=== PATIENT | female | born 1955 | race Caucasian/White ===

== ENCOUNTER → 2020-09-07 08:22 | Outpatient (BNVA) | payer MEDICARE, MEDICAID, SELFPAY | PROVIDERS: PCP Internal Medicine; Referring Provider Internal Medicine; Visit Provider Internal Medicine | DX: R94.31 Abnormal electrocardiogram [ECG] [EKG] (principal); J96.10 Chronic respiratory failure, unspecified whether with hypoxia or hypercapnia; E66.2 Morbid (severe) obesity with alveolar hypoventilation; Z86.74 Personal history of sudden cardiac arrest | CPT/HCPCS: 93005; 99202 ==

== ENCOUNTER → 2020-09-11 09:32 | Outpatient (REF) | payer MEDICARE, MEDICAID, SELFPAY ==
--- NOTE | 2020-09-11 | NM_ITS ---
Lexiscan Myocardial perfusion study Indication: Atypical chest pain, abnormal EKG, assess for coronary disease and ischemia Technique: The patient was brought in for a Lexiscan perfusion study on 09/11/2020 and was injected 0.4 mg of Lexiscan intravenously. Within a minute of this injection 35 mCi of sestamibi was given intravenously. Images were obtained using the SPECT gamma camera interlaced with the gating device. Images were obtained in supine position. Resting perfusion study was performed on 09/12/2020. Patient was administered 35 mCi of sestamibi intravenously at rest. Images were then obtained in supine position. Total DLP 100mGy-cm. Images were processed with the software and compared side to side in short axis, horizontal long axis and vertical long axis views. Findings: Raw acquisition was reviewed. The stress perfusion study showed no significant perfusion abnormality. Both uncorrected as well as CT attenuation corrected images were reviewed. In the gated portion, LVEF appears visually normal. Calculated LVEF of 42% likely erroneous. LV cavity is normal in size. The gated study shows normal wall thickening and contraction of segments. Resting study shows no significant perfusion abnormality. Gating at rest reveals normal wall motion with ejection fraction at 50% (visually higher). The findings are consistent with no definite reversible or fixed perfusion defects. NM/NM demetrio perf SPECT rest & str Impression: 1. Myocardial perfusion imaging study shows normal myocardial perfusion. No evidence of any ischemia or infarction. 2. Gated LVEF is visually normal. 3. Transient ischemic dilatation not present. EKG component of the test reported separately.
--- NOTE | 2020-09-11 09:38 | CA_ITS ---
Acquisition Time: 2020-09-11 09:50:26 Total Exercise Time: 00:01:29 Test Indications: Abnormal ECG Medications: Protocol: RAFITA Max HR: 131 BPM 83% of Pred: 156 BPM Max BP: 150/080 mmHG Max Work Load: 2.3 METS Nuclear exercise stress test switched to Pharmacological stress test as pt unable to walk on the treadmill for longer then 1 min 29 sec. Pt did well after injection with Lexiscan, Sx of nausea reversed with Aminophyline 75 mg IV. Denies any anginal sx. EKG without any arrhythmias, non-diagnostic for ischemia. Nuclear images to follow. Normotensiver esponse to test. Test reviewed with Dr. Caruso Referred By: Heladio Caruso Overread By: Marii Hightower
== END ==
LOC: HO.CARD 09:32
PROVIDERS: PCP Internal Medicine; Visit Provider Internal Medicine
DX: R94.31 Abnormal electrocardiogram [ECG] [EKG] (principal)
CPT/HCPCS: 78452; 93017; A9500; J0280; J2785

== ENCOUNTER → 2020-09-20 12:54 | Outpatient (BNVA) | payer MEDICARE, MEDICAID, SELFPAY | PROVIDERS: PCP Internal Medicine; Referring Provider Internal Medicine; Visit Provider Internal Medicine | DX: R94.31 Abnormal electrocardiogram [ECG] [EKG] (principal); J96.10 Chronic respiratory failure, unspecified whether with hypoxia or hypercapnia; Z86.74 Personal history of sudden cardiac arrest; E66.2 Morbid (severe) obesity with alveolar hypoventilation | CPT/HCPCS: Q3014 ==

== ENCOUNTER → 2021-01-24 12:24 | Outpatient (BNVA) | payer MEDICARE, MEDICAID, SELFPAY | PROVIDERS: PCP Internal Medicine; Visit Provider Internal Medicine | DX: I27.81 Cor pulmonale (chronic) (principal); J96.10 Chronic respiratory failure, unspecified whether with hypoxia or hypercapnia; E66.2 Morbid (severe) obesity with alveolar hypoventilation | CPT/HCPCS: 99212 ==

== ENCOUNTER 2021-09-14 10:50 | Outpatient (REF) | payer MEDICARE, MEDICAID, SELFPAY | END 2021-09-14 10:51 | disposition home or self-care (01) | LOC: HO.LAB 10:50 | PROVIDERS: PCP Internal Medicine; Visit Provider Internal Medicine | DX: Z20.822 Contact with and (suspected) exposure to COVID-19 (principal) | CPT/HCPCS: C9803; U0003; U0005 ==

== ENCOUNTER 2022-07-18 13:39 | Outpatient (REF) | payer MEDICARE, MEDICAID, SELFPAY ==
--- NOTE | ~2022-07-18 | XR_ITS ---
EXAMINATION: XR CHEST CLINICAL INFORMATION: Cough x3 weeks. COMPARISON: Chest 06/30/2020 TECHNIQUE: 2 views of the chest were obtained. FINDINGS: The lungs are well-expanded and clear. The heart size and pulmonary vascularity is normal. There is moderate spondylosis of dorsal spine. No lytic process seen. XR/XR chest 2V IMPRESSION: Unremarkable chest exam.
== END 2022-07-18 13:40 | disposition home or self-care (01) ==
LOC: HO.HMGCX 13:39
PROVIDERS: PCP Internal Medicine; Visit Provider Internal Medicine
DX: R05.9 Cough, unspecified (principal)
CPT/HCPCS: 71046

== ENCOUNTER 2024-02-27 14:18 | Inpatient (IN) | payer MEDICARE, OTHER, SELFPAY ==
--- NOTE | ~2024-02-27 | XR_ITS ---
EXAMINATION: XR CHEST CLINICAL INFORMATION: Shortness of breath. COMPARISON: Chest radiograph dated 07/18/2022. TECHNIQUE: 2 views of the chest were obtained. FINDINGS: Heart size is normal. There is calcific atherosclerotic disease of the aorta. There is a new right lower lobe consolidation likely reflecting pneumonia. There is no pleural effusion or pneumothorax. No acute osseous abnormality. XR/XR chest 2V IMPRESSION: Right lower lobe consolidation likely reflecting pneumonia.
--- NOTE | ~2024-02-27 | CT_ITS ---
EXAMINATION: CT ANGIOGRAM OF THE CHEST WITH AND WITHOUT CONTRAST (CT PULMONARY ANGIOGRAM FOR PE) CLINICAL INFORMATION: Reason for Exam aute hypoxia , pneumonia/mass/pe COMPARISON: None available. TECHNIQUE: Prior to contrast administration, noncontrast localization images were obtained. Subsequently, multidetector volumetric imaging was performed from the thoracic inlet to below the diaphragms following the administration of 75 mL Omnipaque 350 intravenous contrast. No contrast reaction reported Sagittal, coronal, and MIP oblique sagittal reformatted images were obtained on the CT workstation, uploaded to PACS, and reviewed. This CT examination was performed using dose optimization techniques as appropriate, variously including the following: *Automated exposure control *Adjustment of mA and/or kV according to patient size (this includes techniques or standardized protocols for targeted exams where dose is matched to indication/reason for exam; i.e. extremities or head) *Use of iterative reconstruction technique Total exam dose-length product 587 mGy-cm FINDINGS: QUALITY OF STUDY/CONTRAST BOLUS: Satisfactory. PULMONARY ARTERIES: No pulmonary emboli. THORACIC AORTA: No aneurysm. Scattered calcifications of the wall of the thoracic aorta. LUNG: Dense consolidation at the right lower lobe consistent with pneumonia. PLEURA: No pleural effusion or pneumothorax. MEDIASTINUM: Normal heart size. No pericardial effusion. Subcarinal lymphadenopathy measuring 1.7 cm AP. Subcentimeter lymph nodes in the pretracheal retrovascular space. No evidence of septal bowing or right heart strain. CORONARY ARTERY CALCIFICATION: Small volume of coronary calcification. CHEST WALL/AXILLA: No axillary or internal mammary lymphadenopathy. OSSEOUS STRUCTURES: No acute or suspicious osseous abnormality. Multilevel degenerative spondylosis spine. UPPER ABDOMEN: Unremarkable. No reflux of contrast into the hepatic veins to suggest elevated right heart pressures. CT/CT angio chest PE protocol IMPRESSION: 1. No evidence of pulmonary embolism. 2. Right lower lobe pneumonia. 3. Mediastinal lymphadenopathy. VTE: negative.
[2024-02-27 14:27] VITALS: BP 139/86; BP 143/86; PULSE 80; RESP 20; TEMP 36.6; O2SAT 91; O2SAT 92; BMI 41.4
--- NOTE | 2024-02-27 14:34 | ECG_ITS ---
Test Reason : DYSPNEA Blood Pressure : / mmHG Vent. Rate : 093 BPM Atrial Rate : 093 BPM P-R Int : 128 ms QRS Dur : 072 ms QT Int : 362 ms P-R-T Axes : 033 061 016 degrees QTc Int : 450 ms Sinus rhythm with Premature atrial complexes Otherwise normal ECG When compared with ECG of 23-NOV-2016 13:52, Premature atrial complexes are now Present Referred By: Kylie Eckert Electronically Signed By:VIDHYA GATES MD
[2024-02-27 15:00] LABS: MANUAL DIFF FLAG NO
[2024-02-27 15:03] LABS: Basophils Percent Auto 0.4 % (0-2); Eosinophils Absolute Auto 0.1 X10*3/uL (0.0-0.4); Eosinophils Percent Auto 0.6 % (0-4); Hematocrit 47.4 % (37.0-47.0); Hemoglobin 15.1 g/dl (12.0-16.0); Imm Gran Abs Auto 0.06 X10*3/uL (0.00-0.03); Imm Gran Pct Auto 0.7 % (0.0-0.4); Lymphocytes Absolute Auto 1.4 X10*3/uL (1.2-4.9); Mean Corpuscular HGB Conc 31.9 g/dl (31.0-35.0); Mean Corpuscular Hemoglobin 28.4 pg (27.0-33.0); Mean Corpuscular Volume 89.3 fL (80.0-98.0); Mean Platelet Volume 10.6 fL (9.4-12.3); Monocytes Absolute Auto 0.6 X10*3/uL (0.1-1.2); Monocytes Percent Auto 6.2 % (2-11); Neutrophils Absolute Auto 6.9 x10*3/uL (2.0-8.3); Neutrophils Percent Auto 76.1 % (45-73); Platelet Count 206 X10*3/uL (160-400); Red Blood Count 5.31 X10*6/uL (4.20-5.50)
--- NOTE | 2024-02-27 15:06 | ED_ITS ---
HPI - SOB/Dyspnea General Chief Complaint: Dyspnea Stated Complaint: SOB X FEW WEEKS Source: patient Mode of arrival: EMS History of Present Illness HPI Narrative: 68-year-old female who is an everyday smoker and reports chronic lung disease and has had shortness of breath with increased sputum production for 3 weeks, she notes that her oxygenation has been dipping down into 88% and has used her 's oxygen to help supplement but today just became too much but denies any associated fever, chills, nausea, vomiting. Related Data Home Medications ?Medication ?Instructions ?Recorded ?Confirmed carisoprodol 350 mg tablet 700 mg PO TID 09/20/20 01/24/21 clonazepam 1 mg tablet 1 mg PO DAILY PRN 09/20/20 01/24/21 meclizine 25 mg tablet 25 mg PO TID 09/20/20 01/24/21 ondansetron 4 mg disintegrating mg PO 09/20/20 01/24/21 tablet oxycodone 10 mg tablet 10 mg PO QID PRN 09/20/20 01/24/21 oxycodone 10 mg tablet,crush 10 mg PO BID 09/20/20 01/24/21 resistant,extended release 12 hr sennosides 8.6 mg capsule (senna) 8.6 mg PO DAILY 09/20/20 01/24/21 simvastatin 40 mg tablet 40 mg PO BEDTIME 09/20/20 01/24/21 Allergies Allergy/AdvReac Type Severity Reaction Status Date / Time erythromycin base Allergy Severe ANAPHYLAXIS Verified 09/20/20 12:55 [ERYTHROMYCIN BASE] latex [LATEX] Allergy Severe HIVES Verified 09/20/20 12:55 morphine [MORPHINE] Allergy Intermediate NAUSEA & Verified 09/20/20 12:55 VOMITING codeine [CODEINE] Allergy Unknown HIVES Verified 09/20/20 12:55 Penicillins [PENICILLINS] Allergy Unknown UNKNOWN Verified 09/20/20 12:55 cephalexin [From Keflex] AdvReac Intermediate Nausea/Vomi Verified 02/27/24 14:30 ting Review of Systems 2 Review of Systems: Pertinent positives and negatives as stated in HPI PMFSH Past Medical History Source: nursing notes reviewed Medical History Obesity hypoventilation syndrome Chronic respiratory failure History of cardiac arrest Surgical History History of total hysterectomy History of section Family History Family History Father Renal failure Mother Stroke Social History Social History Cigarettes Per Day: 2 Years Smoked: since age 16 Advance Directives: No Advance Directives Information Provided: Yes Do you have a plan to hurt others: No Plan Physical Exam 2 Vital Signs: Vital Signs: Last Vital Signs Temp 98 F 02/27/24 14:27 Pulse 78 02/27/24 15:49 Resp 18 02/27/24 15:49 BP 139/86 02/27/24 14:27 Pulse Ox 91 L 02/27/24 14:27 O2 Del Method Room Air 02/27/24 14:27 BMI result Body Mass Index 41.4 VITAL SIGNS: Reviewed. GENERAL: Well developed, well nourished, in no acute distress. HEAD: Normocephalic/atraumatic EYES: PERRLA, EOMI EARS: Ext canals without abnormality NOSE: Nares patent bilateral OROPHARYNX: no oral lesions noted, posterior pharynx clear NECK: Supple, no adenopathy LUNGS: Tachypnea present, coarse rhonchi and crackles throughout. SpO2<91> CARDIOVASCULAR: Regular rate and rhythm without noted murmurs ABDOMEN: Soft, non-tender, non-distended with bowel sounds. MUSCULOSKELETAL: No tenderness, deformities, or effusions noted on gross inspection. EXTREMITIES: No cyanosis, clubbing or edema. SKIN: Inspection of the skin reveals no rashes NEUROLOGIC: Alert and oriented x 4. Strength and sensation to light touch were grossly intact x 4. Medications Administered Discontinued Medications Generic Name Dose Route Start Last Admin Trade Name Freq PRN Reason Stop Dose Admin Albuterol Sulfate 2.5 mg/ 0 mg 02/27/24 15:26 02/27/24 15:30 Albuterol/Ipratropium 3 ml INHALE 02/27/24 15:27 1 dose ONCE ONE Administration Medical Decision Making Medical Decision Making MDM Narrative: 68-year-old female with history and clinical presentation, DDX: Bronchitis, viral infection, chronic lung disease Reviewed all investigations and hematologic indices negative for leukocytosis/anemia/thrombocytopenia. VBG does not demonstrate respiratory acidosis and pCO2 is consistent with patient's known chronic lung disease. Chemistry indices negative for OANH/electrolyte or liver enzyme derangements. Viral testing negative for influenza/RSV/COVID-19. 1625: My prelim read of chest x-ray demonstrates infiltrate and patient will receive antibiotics after obtaining lactic acid and blood cultures and suspect patient to be admitted for new hypoxemia with pneumonia despite no evidence of leukocytosis. Signed out to Dr Castillo follow-up of chest x-ray Differential Diagnosis Differential Diagnoses: The differential diagnosis associated with the presentation includes Please see the discussion above Admission/Observation Consideration of admission/observation: Escalation of care including admission/observation considered Please see the discussion above Lab Data MDM Lab Attestation statement: I reviewed the patient's lab results. Please see the discussion above 02/27/24 14:53 02/27/24 14:53 Labs: Lab Results 02/27/24 Range/Units 14:53 WBC 9.0 (4.8-10.8) X10*3/uL RBC 5.31 (4.20-5.50) X10*6/uL Hgb 15.1 (12.0-16.0) g/dl Hct 47.4 H (37.0-47.0) % MCV 89.3 (80.0-98.0) fL MCH 28.4 (27.0-33.0) pg MCHC 31.9 (31.0-35.0) g/dl RDW 14.0 (11.0-16.0) % Plt Count 206 (160-400) X10*3/uL MPV 10.6 (9.4-12.3) fL Immature Gran % (Auto) 0.7 H (0.0-0.4) % Neut % (Auto) 76.1 H (45-73) % Lymph % (Auto) 16.0 L (20-40) % [place] % (Auto) 6.2 (2-11) % Eos % (Auto) 0.6 (0-4) % Baso % (Auto) 0.4 (0-2) % Lymph # (Auto) 1.4 (1.2-4.9) X10*3/uL [place] # (Auto) 0.6 (0.1-1.2) X10*3/uL Eos # (Auto) 0.1 (0.0-0.4) X10*3/uL Baso # (Auto) 0.0 (0.0-0.2) X10*3/uL Abs Immat Gran (auto) 0.06 H (0.00-0.03) X10*3/uL Absolute Neuts (auto) 6.9 (2.0-8.3) x10*3/uL Absolute Nucleated RBC 0.000 (0.0-0.012) X10*3/uL Nucleated RBC % (auto) 0.0 (0.0-0.2) /100WBC VBG pH 7.40 (7.32-7.43) VBG pCO2 50 mmHg VBG pO2 42 mmHg VBG HCO3 31 H (22-26) mmol/L VBG O2 Saturation 68.0 % VBG Base Excess 5.4 mmol/L Sodium 139 (135-145) mmol/L Potassium 4.0 (3.3-5.1) mmol/L Chloride 100 (96-108) mmol/L Carbon Dioxide 29 (22-29) mmol/L Anion Gap 14 (12-20) BUN 11 (9-16) mg/dL Creatinine 0.73 (0.5-1.4) mg/dL Estim Creat Clear Calc 79.6 Estimated GFR > 60 Random Glucose 97 (60-115) mg/dL Calcium 9.4 (8.4-10.2) mg/dL Total Bilirubin 0.7 (0.0-1.0) mg/dL AST 17 (5-31) U/L ALT 16 (0-31) U/L Alkaline Phosphatase 96 (39-117) U/L B-Natriuretic Peptide 54 (<100) pg/mL Total Protein 7.2 (6.5-8.0) g/dL Albumin 3.9 (3.5-5.0) g/dL Influenza Type A (PCR) NEGATIVE (Negative) Influenza Type B (PCR) NEGATIVE (Negative) RSV RNA Qual (PCR) NEGATIVE (Negative) SARS-CoV-2 RNA (RT-PCR) NEGATIVE (Negative) Independent Interpretation I performed an independent interpretation of an: EKG Interpretation: Sinus rhythm with PACs, HR-93, no STEMI, CA/QRS/QTC is within normal limits. Radiology Impression Discussion of test interpretation with radiology: I have reviewed the radiologist's reading. Radiologist Impression: Please see the discussion above External Record Review External record reviewed: Outpatient record, Prior outpatient labs and Prior outpatient radiology Chronic Conditions Patient?s care impacted by: Hypertension Chronic lung disease Critical Care Time Critical Care Time Critical Care Time: Yes Total Critical Care Time: 45 Attestation: I personally attest to this time spent taking care of the patient. Discharge Plan Discharge Clinical Impression: Hypoxia, Pneumonia Patient Disposition: Admitted As Inpatient Print Language: Argentine
[2024-02-27 15:14] LABS: Venous Blood Gas Refer to POC result
[2024-02-27 15:20] LABS: VBG Base Excess 5.4 mmol/L; VBG HCO3 31 mmol/L (22-26); VBG pCO2 50 mmHg; VBG pO2 42 mmHg
[2024-02-27] MEDS: Albuterol Sulfate 2.5 MG, Albuterol/Iprat 2.5/0.5MG 3 ML 3 ML INHALE (15:30)
[2024-02-27 15:39] LABS: B Type Natriuretic Peptide 54 pg/mL (<100)
[2024-02-27 15:49] VITALS: PULSE 78; RESP 18; O2SAT 91
[2024-02-27 15:53] LABS: Influenza A PCR NEGATIVE (Negative); Influenza B PCR NEGATIVE (Negative); Resp Syncy Virus RNA Qual PCR NEGATIVE (Negative); SARS COV2 PCR INHOUSE NEGATIVE (Negative)
[2024-02-27 15:56] LABS: Alanine Aminotransferase 16 U/L (0-31); Albumin Level 3.9 g/dL (3.5-5.0); Alkaline Phosphatase 96 U/L (39-117); Anion Gap 14 (12-20); Aspartate Amino Transferase 17 U/L (5-31); Bilirubin Total 0.7 mg/dL (0.0-1.0); Blood Urea Nitrogen 11 mg/dL (9-16); Calcium 9.4 mg/dL (8.4-10.2); Carbon Dioxide 29 mmol/L (22-29); Chloride 100 mmol/L (96-108); Creatinine Clr Calc Pharmacy 79.6; Estimated Glomerular Filt Rate > 60; Glucose Random 97 mg/dL (60-115); Sodium 139 mmol/L (135-145); Total Protein 7.2 g/dL (6.5-8.0)
[2024-02-27 16:45] VITALS: BP 137/75; PULSE 85; RESP 15; TEMP 36.8; O2SAT 91
[2024-02-27] MEDS: cefEPime HCl 1 GM in 0.9 % Sodium Chloride 50 ML IV (16:51)
--- NOTE | 2024-02-27 16:54 | PC.NURSE ---
blood cultures and lactic drawn. abx started per jan. pt on 2l oxygen, spo2 90-92%
[2024-02-27] MEDS: ondansetron HCL 4 MG/2 ML VIAL IVPUSH (17:53)
[2024-02-27] MEDS: HYDROmorphone HCl 1 MG/ML SYRINGE IVPUSH (17:54)
--- NOTE | 2024-02-27 18:18 | P.HPHOSP_ITS ---
History of Present Illness Date of Service: 02/27/24 Attending physician on admission: Giancarlo Hernandez Chief Complaint: SOB Pt is a 68-year-old female with a PMH significant for?COPD not on home O2, HLD, hx of SBO with resection, abdominal hernias, chronic lower back pain on chronic opioids who presents to the ED for evaluation of SOB, cough, and hypoxia. Pt states symptoms began 3 weeks ago when she developed cough, SOB/TORRES, and difficulty breathing. Cough was initially productive of grayish sputum, but has been mostly clear for the last week. Patient has a pulse ox reader at home and noted she was hypoxic into the 80s. Began using her 's home O2 two weeks ago and has been wearing it constantly since then. Today patient presented to her PCP who checked her O2 saturation and sent her to the ED for further evaluation when she was noted to be hypoxic. Denies fever, chills, nausea, vomiting, abdominal pain. No chest pain/pressure, palpitations. Denies headache. No recent weight loss, or increased fatigue. In the ED pt was afebrile but hypoxic as low as 84% on room air. Labs were grossly unremarkable. No leukocytosis. Stable H&H. No significant electrolyte abnormalities. Renal and hepatic function baseline. BNP WNL. Tested negative for COVID, RSV, flu. CXR found right lower lobe consolidation likely reflecting pneumonia. CTA of chest pending. EKG demonstrated sinus rhythm with PACs and no evidence of significant ST elevations or depressions. Pt was treated with DuoNeb, cefepime, ondansetron, and hydromorphone. Pt will be admitted to the hospital for treatment and further evaluation of acute hypoxic respiratory failure in setting of COPD exacerbation with superimposed pneumonia. Review of Systems 2 Review of Systems: SOB, TORRES Productive cough Difficulty breathing, hypoxia Chronic lower back pain No chest pain/pressure, or palpitations Denies fever, chills, N/V/D, abdominal pain [facility] Medical History (Updated 02/27/24 @ 19:22 by AD Thomas) Chronic lower back pain SBO (small bowel obstruction) Obesity hypoventilation syndrome Chronic respiratory failure History of cardiac arrest Family History Father Renal failure Mother Stroke Surgical History (Updated 02/27/24 @ 19:22 by AD Thomas) Status post colon resection History of total hysterectomy History of section Social History Cigarettes Per Day: 2 Years Smoked: since age 16 Smoked in Last 30 Days: Yes Use of substances other than those prescribed or required for medical reasons: No Advance Directives: No Advance Directives Information Provided: Yes Do you have a plan to hurt others: No Plan Meds Allergies Allergy/AdvReac Type Severity Reaction Status Date / Time erythromycin base Allergy Severe ANAPHYLAXIS Verified 09/20/20 12:55 [ERYTHROMYCIN BASE] latex [LATEX] Allergy Severe HIVES Verified 09/20/20 12:55 morphine [MORPHINE] Allergy Intermediate NAUSEA & Verified 09/20/20 12:55 VOMITING codeine [CODEINE] Allergy Unknown HIVES Verified 09/20/20 12:55 Penicillins [PENICILLINS] Allergy Unknown UNKNOWN Verified 09/20/20 12:55 cephalexin [From Keflex] AdvReac Intermediate Nausea/Vomi Verified 02/27/24 14:30 ting Home Medications ?Medication ?Instructions ?Recorded ?Confirmed ?Last Taken ?Type carisoprodol 350 mg tablet 700 mg PO TID 09/20/20 01/24/21 Unknown History clonazepam 1 mg tablet 1 mg PO DAILY PRN 09/20/20 01/24/21 Unknown History meclizine 25 mg tablet 25 mg PO TID 09/20/20 01/24/21 Unknown History ondansetron 4 mg disintegrating mg PO 09/20/20 01/24/21 Unknown History tablet oxycodone 10 mg tablet 10 mg PO QID PRN 09/20/20 01/24/21 Unknown History oxycodone 10 mg tablet,crush 10 mg PO BID 09/20/20 01/24/21 Unknown History resistant,extended release 12 hr sennosides 8.6 mg capsule (senna) 8.6 mg PO DAILY 09/20/20 01/24/21 Unknown History simvastatin 40 mg tablet 40 mg PO BEDTIME 09/20/20 01/24/21 Unknown History Physical Exam 2 Vital Signs and Narrative: Vital Signs: Last Vital Signs Temp 98.2 F 02/27/24 16:45 Pulse 85 02/27/24 16:45 Resp 15 02/27/24 16:45 BP 137/75 02/27/24 16:45 Pulse Ox 91 L 02/27/24 16:45 O2 Del Method Nasal Cannula 02/27/24 16:45 O2 Flow Rate 2 02/27/24 16:45 BMI result Body Mass Index 41.4 Constitutional: Alert, in no acute distress. Mental Status: Oriented to person, place and time. Eyes: Pupils are equal, round, and reactive to light. Ear, Nose, and Throat: Oropharynx clear, mucous membranes moist. Ears and nose without deformities. Trachea midline. Respiratory: Diffuse inspiratory and expiratory wheezing bilaterally. Cardiovascular: Regularly irregular rhythm. No murmurs, rubs, or gallops. Gastrointestinal: Abdomen soft, non-tender, non-distended. Normal bowel sounds. Neurologic: Cranial nerves II-XII are grossly intact bilaterally. No focal neurological deficits. Moves all extremities spontaneously. Skin: Warm, dry. Musculoskeletal: No cyanosis or clubbing. Extremities: No edema. Psychiatric: Normal mood and affect. Results Labs 02/27/24 14:53 02/27/24 14:53 Labs: Laboratory Results - last 24 hr 02/27/24 14:53 MCV 89.3 MCH 28.4 MCHC 31.9 RDW 14.0 Plt Count 206 MPV 10.6 Immature Gran % (Auto) 0.7 H Neut % (Auto) 76.1 H Lymph % (Auto) 16.0 L [place] % (Auto) 6.2 Eos % (Auto) 0.6 Baso % (Auto) 0.4 Lymph # (Auto) 1.4 [place] # (Auto) 0.6 Eos # (Auto) 0.1 Baso # (Auto) 0.0 Abs Immat Gran (auto) 0.06 H Absolute Neuts (auto) 6.9 Absolute Nucleated RBC 0.000 Nucleated RBC % (auto) 0.0 VBG pH 7.40 VBG pCO2 50 VBG pO2 42 VBG HCO3 31 H VBG O2 Saturation 68.0 VBG Base Excess 5.4 Anion Gap 14 Estim Creat Clear Calc 79.6 Estimated GFR > 60 Random Glucose 97 Calcium 9.4 Total Bilirubin 0.7 AST 17 ALT 16 Alkaline Phosphatase 96 B-Natriuretic Peptide 54 Total Protein 7.2 Albumin 3.9 Influenza Type A (PCR) NEGATIVE Influenza Type B (PCR) NEGATIVE RSV RNA Qual (PCR) NEGATIVE SARS-CoV-2 RNA (RT-PCR) NEGATIVE Imaging Radiologist's Impressions: Impressions Chest X-Ray 02/27/24 16:19 IMPRESSION: Right lower lobe consolidation likely reflecting pneumonia. Assessment and Plan (1) Pneumonia: Status: Acute (2) Hypoxia: Status: Acute Plan Pt is a 68-year-old female with a PMH significant for?COPD not on home O2, HLD, hx of SBO with resection, abdominal hernias, chronic lower back pain on chronic opioids who presents to the ED for evaluation of SOB, cough, and hypoxia. Pt will be admitted to the hospital for treatment and further evaluation of acute hypoxic respiratory failure in setting of COPD exacerbation with superimposed pneumonia. Acute hypoxic respiratory failure in the setting of COPD exacerbation and superimposed pneumonia Patient with SOB, TORRES, productive cough x2 weeks; desatting to 84% on RA, wheezing upon auscultation, and CXR with consolidation Patient does not meet sepsis criteria: No fever, tachycardia, tachypnea, or leukocytosis; lactic acid WNL Patient was started on broad-spectrum antibiotics in the ED Will cover with cefuroxime and doxycycline, started 02/27/2024 Will treat with DuoNebs, Solu-Medrol, guaifenesin CTA of chest pending Titrate supplemental O2 >90, wean as tolerated Monitor respiratory status HLD Continue statin Chronic lower back pain Continue home opioids, carisoprodol Vertigo Continue meclizine Full Code Attending:?Dr. Hernandez DVT Prophylaxis: Lovenox Pt will require a hospitalization of at least two nights for treatment of?acute hypoxic respiratory failure in the setting of COPD exacerbation with underlying pneumonia. Patient will require hospitalization for the administration of IV antibiotics, IV steroids, breathing treatments, and supplemental oxygen. Quality Stroke Does the patient have a stroke diagnosis?: No VTE Prior VTE?: No VTE Risk Level:: Medical - moderate - high VTE Device Contraindication: Treatment Not Indicated VTE Drug Contraindication: N/A - Med Ordered
[2024-02-27 18:53] LABS: Lactic Acid 1.6 mmol/L (0.5-2.0)
[2024-02-27 19:07] VITALS: PULSE 79; RESP 18; O2SAT 91
[2024-02-27] MEDS: Albuterol/Iprat 2.5/0.5MG 3 ML AMPUL.NEB INHALE (19:27)
[2024-02-27] MEDS: Enoxaparin Sodium 40 MG/0.4 ML SYRINGE SUBCUT (19:28)
[2024-02-27] MEDS: methylPREDNISolone Sod Succ 40 MG/ML VIAL IVPUSH (19:28)
[2024-02-27] MEDS: iohexoL 350 MG/ML 100 ML INFUS..BTL IV (19:59)
--- NOTE | 2024-02-27 20:53 | PHA.MEDREC ---
Pharmacy Consult ? Medication Reconciliation Pharmacy has completed the medication reconciliation with the patient. Pt was able to recall medications and doses with a little bit of help. She said she takes clonazepam 1 mg at bedtime and splits 1 tablet prn when she is feeling anxious. Also states that carisoprodol is written for 2 tabs TID but she only takes one tablet at a time as needed.
[2024-02-27] MEDS: clonazePAM 1 MG TABLET PO (22:38)
[2024-02-27] MEDS: oxyCODONE HCl ER 10 MG TAB.ER.12H 20 MG PO (22:38)
[2024-02-27] MEDS: Meclizine HCl 25 MG TABLET 50 MG PO (22:38)
[2024-02-28] VITALS (10 sets, daily range): BP systolic 99–117; BP diastolic 58–80; PULSE 52–100; RESP 12–18; TEMP 36.1–37.1; O2SAT 90–97
[2024-02-28] MEDS: methylPREDNISolone Sod Succ 40 MG/ML VIAL IVPUSH ×2 (07:28→20:45)
[2024-02-28] MEDS: cefTRIAXone sodium 1 GM in 0.9 % Sodium Chloride 50 ML IV (07:28)
[2024-02-28] MEDS: 0.9 % Sodium Chloride Flush 3 ML SYRINGE IVFLUSH ×2 (07:28→15:51)
[2024-02-28] MEDS: Omeprazole 20 MG CAPSULE.DR PO (07:28)
[2024-02-28] MEDS: Doxycycline Hyclate 100 MG in 0.9 % Sodium Chloride 250 ML 166.67 MG IV ×2 (07:51→20:43)
[2024-02-28] MEDS: Albuterol/Iprat 2.5/0.5MG 3 ML AMPUL.NEB INHALE ×4 (07:51→19:03)
--- NOTE | 2024-02-28 08:01 | P.PNIM_ITS ---
Subjective Subjective Date of Service: 02/28/24 Interval History: a bit better today Physical Exam 2 Vital Signs: Vital Signs: Last Vital Signs Temp 98.2 F 02/28/24 06:24 Pulse 69 02/28/24 08:00 Resp 16 02/28/24 08:00 BP 117/80 02/28/24 07:30 Pulse Ox 97 02/28/24 07:30 O2 Del Method Nasal Cannula 02/28/24 07:30 O2 Flow Rate 4 02/28/24 07:30 BMI result Body Mass Index 41.4 General: AO X 3, no acute distress Resp: diminished bilateral, no accessory muscles used CVS: S1,S2,RRR GI: soft, non tender, non distended Neuro: motor grossly intact, alert Psych: appropriate affect, appropriate insight Objective Data Active Medications Acetaminophen (Acetaminophen 325 Mg Tablet) 650 mg PO Q6H PRN PRN Reason: Pain, Mild (Pain Scale 1-3) Albuterol/Ipratropium (Albuterol/Iprat 2.5/0.5mg 3 Ml Ampul.Neb) 3 ml INHALE RQ4H WHILE AWAKE [facility], [facility] Last Admin: 02/28/24 07:51 Dose: 3 ml Documented By: ROSIO Atorvastatin Calcium (Atorvastatin Calcium 20 Mg Tablet) 20 mg PO BEDTIME JULIET Carisoprodol (Carisoprodol 350 Mg Tablet) 350 mg PO TID PRN PRN Reason: Pain, Mild (Pain Scale 1-3) Clonazepam (Clonazepam 0.5 Mg Tablet) 0.5 mg PO DAILY PRN PRN Reason: Anxiety Clonazepam (Clonazepam 1 Mg Tablet) 1 mg PO BEDTIME [facility] Last Admin: 02/27/24 22:38 Dose: 1 mg Documented By: GAVIOTA Docusate Sodium (Docusate Sodium 100 Mg Capsule) 100 mg PO DAILY PRN PRN Reason: Constipation Enoxaparin Sodium (Enoxaparin Sodium 40 Mg/0.4 Ml Syringe) 40 mg SUBCUT Q24H [facility] Last Admin: 02/27/24 19:28 Dose: 40 mg Documented By: GAVIOTA Guaifenesin/Dextromethorphan (Guaifenesin Dm 200/20/10 Ml 10 Ml Syrup) 10 ml PO Q6H PRN PRN Reason: Cough Doxycycline Hyclate 100 mg/ (Sodium Chloride) 250 mls @ 166.67 mls/hr IV Q12H [facility] Last Admin: 02/28/24 07:51 Dose: 166.67 mls/hr Documented By: ROSIO Ceftriaxone Sodium 1 gm/ (Sodium Chloride) 50 mls @ 100 mls/hr IV Q24H [facility] Last Admin: 02/28/24 07:28 Dose: 100 mls/hr Documented By: ROSIO Lisinopril (Lisinopril 10 Mg Tablet) 10 mg PO DAILY [facility]; Protocol Meclizine HCl (Meclizine Hcl 25 Mg Tablet) 50 mg PO TID [facility] Last Admin: 02/27/24 22:38 Dose: 50 mg Documented By: GAVIOTA Melatonin (Melatonin 3 Mg Tablet) 6 mg PO BEDTIME PRN PRN Reason: Insomnia Methylprednisolone Sodium Succinate (Methylprednisolone Sod Succ 40 Mg/Ml Vial) 40 mg IVPUSH Q12H [facility] Last Admin: 02/28/24 07:28 Dose: 40 mg Documented By: ROSIO Omeprazole (Omeprazole 20 Mg Capsule.Dr) 20 mg PO DAILY@0630 [facility] Last Admin: 02/28/24 07:28 Dose: 20 mg Documented By: ROSIO Ondansetron HCl (Ondansetron Hcl 4 Mg/2 Ml Vial) 4 mg IVPUSH Q8H PRN PRN Reason: Nausea and Vomiting Oxycodone HCl (Oxycodone Hcl Immed Release 5 Mg Tablet) 10 mg PO QID [facility] Oxycodone HCl (Oxycodone Hcl Er 10 Mg Tab.Er.12h) 20 mg PO BID [facility] Last Admin: 02/27/24 22:38 Dose: 20 mg Documented By: GAVIOTA Senna (Sennosides 8.6 Mg Tablet) 17.2 mg PO DAILY [facility]1983 Sodium Chloride (0.9 % Sodium Chloride Flush 3 Ml Syringe) 3 ml IVFLUSH QSHIFT [facility] Last Admin: 02/28/24 07:28 Dose: 3 ml Documented By: ROSIO Labs 02/27/24 14:53 02/27/24 14:53 Labs: Laboratory Results - last 24 hr 02/27/24 02/27/24 14:53 16:35 MCV 89.3 MCH 28.4 MCHC 31.9 RDW 14.0 Plt Count 206 MPV 10.6 Immature Gran % (Auto) 0.7 H Neut % (Auto) 76.1 H Lymph % (Auto) 16.0 L [place] % (Auto) 6.2 Eos % (Auto) 0.6 Baso % (Auto) 0.4 Lymph # (Auto) 1.4 [place] # (Auto) 0.6 Eos # (Auto) 0.1 Baso # (Auto) 0.0 Abs Immat Gran (auto) 0.06 H Absolute Neuts (auto) 6.9 Absolute Nucleated RBC 0.000 Nucleated RBC % (auto) 0.0 VBG pH 7.40 VBG pCO2 50 VBG pO2 42 VBG HCO3 31 H VBG O2 Saturation 68.0 VBG Base Excess 5.4 Anion Gap 14 Estim Creat Clear Calc 79.6 Estimated GFR > 60 Random Glucose 97 Lactic Acid 1.6 Calcium 9.4 Total Bilirubin 0.7 AST 17 ALT 16 Alkaline Phosphatase 96 B-Natriuretic Peptide 54 Total Protein 7.2 Albumin 3.9 Influenza Type A (PCR) NEGATIVE Influenza Type B (PCR) NEGATIVE RSV RNA Qual (PCR) NEGATIVE SARS-CoV-2 RNA (RT-PCR) NEGATIVE Assessment and Plan (1) Pneumonia: Status: Acute Plan 68F PMH COPD, hyperlipidemia, history of SBO with small-bowel resection, chronic low back pain with opiate dependence presented with shortness of breath Acute hypoxic respiratory failure due to COPD with acute decompensation and right lower lobe pneumonia Continue Rocephin and doxycycline Solu-Medrol and bronchodilators Wean O2 as tolerated Hyperlipidemia Continue statin Morbid obesity Weight loss recommended Chronic low back pain with opiate dependence Continue oxycodone DVT prophylaxis with Lovenox Full Code Reason for continued hospitalization: Still hypoxic Quality Stroke Does the patient have a stroke diagnosis?: No VTE Prior VTE?: No VTE Risk Level:: Medical - moderate - high VTE Device Contraindication: Treatment Not Indicated VTE Drug Contraindication: N/A - Med Ordered
--- NOTE | 2024-02-28 08:30 | PC.NURSE ---
PT TRANSFERED FROM MAIN ED TO OVERFLOW BED 1 VIA STRETCHER. RN TO RN REPORT RECEIVED.
--- NOTE | 2024-02-28 08:48 | PC.NURSE ---
Addendum entered by Breanna Ferreira 02/28/24 08:54: C/O 9/10 LOWER BACK PAIN. Original Note: PT IS A/O X 3. SPEAKS IN FULL SENTENCES. LUNGS - RUL (CTA) ALL OTTHER LOBES DIMINISHED. PT IS ON 02 AT 2.5L VIA N/C (92-93% FOR 02 SAT). PT C/O LOWER BACK PAIN. NO EDEMA NOTED. PT AWARE OF PLAN OF CARE. WILL CONTINUE TO MONITOR.
[2024-02-28] MEDS: Sennosides 8.6 MG TABLET 17.2 MG PO (08:57)
[2024-02-28] MEDS: oxyCODONE HCl Immed Release 5 MG TABLET 10 MG PO ×4 (08:57→20:47)
[2024-02-28] MEDS: lisinopriL 10 MG TABLET PO (08:57)
[2024-02-28] MEDS: Meclizine HCl 25 MG TABLET 50 MG PO ×3 (08:57→20:47)
[2024-02-28] MEDS: oxyCODONE HCl ER 10 MG TAB.ER.12H 20 MG PO ×2 (09:08→20:47)
--- NOTE | 2024-02-28 11:14 | PC.NURSE ---
PT STATES THAT HER PAIN IS NOW 7/10. WILL CONTINUE TO MONITOR.
--- NOTE | 2024-02-28 15:11 | MHC.CM.PN ---
IMM 02/28/24, EMR REVIEWED, PT ADMITTED W/PNA, CM MET W/PT WHO IS A&O, PT REPORTS SHE LIVES W/, DTR AND GSON, PT REPORTS SHE IS INDEP W/AMBULATION, DOES HAVE GRAB BARS IN BR FOR WHO HAD A STROKE AND HAS FAMILY SUPPORT W/ONE DTR IN [employer]SING [employer] AND ANOTHER FAMILY MEMBER WHO IS A NURSE, PT REPORTS GOAL IS HOME AND SHE DECLINES ANY HOME SERVICES. PCP ON FILE VERIFIED AND HCP IS BAKARI TURCIOS, COPY REQUESTED.
[2024-02-28] MEDS: Enoxaparin Sodium 40 MG/0.4 ML SYRINGE SUBCUT (18:21)
--- NOTE | 2024-02-28 18:58 | PC.NURSE ---
IV access lost at approximately 1845 when attempting to hang IV doxycycline and administer IV solumedrol. Access attempted x2 by this RN with no success. Care transferred to RN assuming care of patient at change of shift.
[2024-02-28] MEDS: Atorvastatin Calcium 20 MG TABLET PO (20:47)
[2024-02-28] MEDS: clonazePAM 1 MG TABLET PO (20:47)
[2024-02-29] VITALS (8 sets, daily range): BP systolic 99–124; BP diastolic 60–79; PULSE 68–95; RESP 16–18; TEMP 36.2–36.7; O2SAT 90–94
[2024-02-29] MEDS: Omeprazole 20 MG CAPSULE.DR PO (06:12)
[2024-02-29] MEDS: cefTRIAXone sodium 1 GM in 0.9 % Sodium Chloride 50 ML IV (06:13)
[2024-02-29] MEDS: methylPREDNISolone Sod Succ 40 MG/ML VIAL IVPUSH ×2 (06:13→18:08)
[2024-02-29] MEDS: Doxycycline Hyclate 100 MG in 0.9 % Sodium Chloride 250 ML 166.67 MG IV (06:13)
[2024-02-29] MEDS: carisoprodoL 350 MG TABLET PO (06:19)
[2024-02-29 06:29] LABS: Hematocrit 44.7 % (37.0-47.0); Hemoglobin 13.7 g/dl (12.0-16.0); Mean Corpuscular HGB Conc 30.6 g/dl (31.0-35.0); Mean Corpuscular Hemoglobin 27.8 pg (27.0-33.0); Mean Corpuscular Volume 90.7 fL (80.0-98.0); Mean Platelet Volume 11.2 fL (9.4-12.3); Platelet Count 257 X10*3/uL (160-400); Red Blood Count 4.93 X10*6/uL (4.20-5.50); Red Cell Distribution Width 14.1 % (11.0-16.0)
[2024-02-29 06:56] LABS: Blood Urea Nitrogen 14 mg/dL (9-16); Calcium 9.2 mg/dL (8.4-10.2); Creatinine Clr Calc Pharmacy 80.8; Estimated Glomerular Filt Rate > 60; Glucose Fasting 129 mg/dL (60-99)
[2024-02-29 07:12] LABS: Anion Gap 13 (12-20); Carbon Dioxide 29 mmol/L (22-29); Chloride 100 mmol/L (96-108); Potassium 5.2 mmol/L (3.3-5.1); Sodium 137 mmol/L (135-145)
[2024-02-29] MEDS: oxyCODONE HCl Immed Release 5 MG TABLET 10 MG PO ×4 (08:21→21:04)
[2024-02-29] MEDS: 0.9 % Sodium Chloride Flush 3 ML SYRINGE IVFLUSH ×2 (08:21→15:41)
[2024-02-29] MEDS: oxyCODONE HCl ER 10 MG TAB.ER.12H 20 MG PO ×2 (08:21→21:02)
[2024-02-29] MEDS: Meclizine HCl 25 MG TABLET 50 MG PO ×3 (08:22→21:02)
[2024-02-29] MEDS: lisinopriL 10 MG TABLET PO (08:22)
[2024-02-29] MEDS: Sennosides 8.6 MG TABLET 17.2 MG PO (08:22)
[2024-02-29] MEDS: Albuterol/Iprat 2.5/0.5MG 3 ML AMPUL.NEB INHALE ×3 (08:27→19:07)
--- NOTE | 2024-02-29 09:25 | HO.PM.IMPN ---
Subjective Subjective Date of Service: 02/29/24 Interval History: feeling better today Physical Exam Vital Signs: Vital Signs: Last Vital Signs Temp 97.4 F 02/29/24 08:00 Pulse 78 02/29/24 08:29 Resp 18 02/29/24 08:29 BP 120/79 02/29/24 08:22 Pulse Ox 92 02/29/24 08:00 O2 Del Method Room Air 02/29/24 08:00 O2 Flow Rate 1 02/28/24 14:43 BMI result Body Mass Index 41.4 General: AO X 3, no acute distress Resp: diminished bilateral with crackles, mild accessory muscles used CVS: S1,S2,RRR GI: soft, non tender, non distended Neuro: motor grossly intact, alert Psych: appropriate affect, appropriate insight Objective Data Active Medications Acetaminophen (Acetaminophen 325 Mg Tablet) 650 mg PO Q6H PRN PRN Reason: Pain, Mild (Pain Scale 1-3) Albuterol/Ipratropium (Albuterol/Iprat 2.5/0.5mg 3 Ml Ampul.Neb) 3 ml INHALE RQ4H WHILE AWAKE [facility] Last Admin: 02/29/24 08:27 Dose: 3 ml Documented By: RUBY Atorvastatin Calcium (Atorvastatin Calcium 20 Mg Tablet) 20 mg PO BEDTIME [facility] Last Admin: 02/28/24 20:47 Dose: 20 mg Documented By: NICOLE Carisoprodol (Carisoprodol 350 Mg Tablet) 350 mg PO TID PRN PRN Reason: Pain, Mild (Pain Scale 1-3) Last Admin: 02/29/24 06:19 Dose: 350 mg Documented By: NICOLE Clonazepam (Clonazepam 0.5 Mg Tablet) 0.5 mg PO DAILY PRN PRN Reason: Anxiety Clonazepam (Clonazepam 1 Mg Tablet) 1 mg PO BEDTIME [facility] Last Admin: 02/28/24 20:47 Dose: 1 mg Documented By: NICOLE Docusate Sodium (Docusate Sodium 100 Mg Capsule) 100 mg PO DAILY PRN PRN Reason: Constipation Doxycycline Monohydrate (Doxycycline Monohydrate 100 Mg Capsule) 100 mg PO Q12H [facility] Enoxaparin Sodium (Enoxaparin Sodium 40 Mg/0.4 Ml Syringe) 40 mg SUBCUT Q24H [facility] Last Admin: 02/28/24 18:21 Dose: 40 mg Documented By: CHUCKY Guaifenesin/Dextromethorphan (Guaifenesin Dm 200/20/10 Ml 10 Ml Syrup) 10 ml PO Q6H PRN PRN Reason: Cough Doxycycline Hyclate 100 mg/ (Sodium Chloride) 250 mls @ 166.67 mls/hr IV Q12H [facility] Stop: 02/29/24 10:00 Last Infusion: 02/29/24 08:21 Dose: Infused Documented By: VIVIAN Ceftriaxone Sodium 1 gm/ (Sodium Chloride) 50 mls @ 100 mls/hr IV Q24H [facility] Last Infusion: 02/29/24 07:01 Dose: Infused Documented By: VIVIAN Lisinopril (Lisinopril 10 Mg Tablet) 10 mg PO DAILY [facility]; Protocol Last Admin: 02/29/24 08:22 Dose: 10 mg Documented By: VIVIAN Meclizine HCl (Meclizine Hcl 25 Mg Tablet) 50 mg PO TID [facility] Last Admin: 02/29/24 08:22 Dose: 50 mg Documented By: VIVIAN Melatonin (Melatonin 3 Mg Tablet) 6 mg PO BEDTIME PRN PRN Reason: Insomnia Methylprednisolone Sodium Succinate (Methylprednisolone Sod Succ 40 Mg/Ml Vial) 40 mg IVPUSH Q12H [facility] Last Admin: 02/29/24 06:13 Dose: 40 mg Documented By: NICOLE Omeprazole (Omeprazole 20 Mg Capsule.Dr) 20 mg PO DAILY@0630 [facility] Last Admin: 02/29/24 06:12 Dose: 20 mg Documented By: NICOLE Ondansetron HCl (Ondansetron Hcl 4 Mg/2 Ml Vial) 4 mg IVPUSH Q8H PRN PRN Reason: Nausea and Vomiting Oxycodone HCl (Oxycodone Hcl Immed Release 5 Mg Tablet) 10 mg PO QID [facility] Last Admin: 02/29/24 08:21 Dose: 10 mg Documented By: VIVIAN Oxycodone HCl (Oxycodone Hcl Er 10 Mg Tab.Er.12h) 20 mg PO BID [facility] Last Admin: 02/29/24 08:21 Dose: 20 mg Documented By: VIVIAN Senna (Sennosides 8.6 Mg Tablet) 17.2 mg PO DAILY [facility] Last Admin: 02/29/24 08:22 Dose: 17.2 mg Documented By: VIVIAN Sodium Chloride (0.9 % Sodium Chloride Flush 3 Ml Syringe) 3 ml IVFLUSH QSHIFT [facility] Last Admin: 02/29/24 08:21 Dose: 3 ml Documented By: VIVIAN Labs 02/29/24 05:52 02/29/24 05:52 Labs: Laboratory Results - last 24 hr 02/29/24 05:52 MCV 90.7 MCH 27.8 MCHC 30.6 L RDW 14.1 Plt Count 257 MPV 11.2 Absolute Nucleated RBC 0.000 Nucleated RBC % (auto) 0.0 Anion Gap 13 Estim Creat Clear Calc 80.8 Estimated GFR > 60 Fasting Glucose 129 H Calcium 9.2 Microbiology Microbiology Results: Microbiology 02/27/24 16:35 Blood Culture - Preliminary Blood - Venous No growth after 24 hours. 02/27/24 16:49 Blood Culture - Preliminary Blood - Venous Prelim: GPC Gram Stain only Assessment and Plan (1) Pneumonia: Status: Acute Plan 68F PMH COPD, hyperlipidemia, history of SBO with small-bowel resection, chronic low back pain with opiate dependence presented with shortness of breath Acute hypoxic respiratory failure due to COPD with acute decompensation and right lower lobe pneumonia Continue Rocephin and doxycycline Solu-Medrol and bronchodilators now on room air 1/2 gpc in blood culture likely contaminant, follow up species Hyperlipidemia Continue statin Morbid obesity Weight loss recommended Chronic low back pain with opiate dependence Continue oxycodone DVT prophylaxis with Lovenox Full Code Reason for continued hospitalization: still with crackles, some accessory muscles, awaiting final cultures Quality Stroke Does the patient have a stroke diagnosis?: No VTE Prior VTE?: No VTE Risk Level:: Medical - moderate - high VTE Device Contraindication: Treatment Not Indicated VTE Drug Contraindication: N/A - Med Ordered
[2024-02-29] MEDS: Enoxaparin Sodium 40 MG/0.4 ML SYRINGE SUBCUT (18:08)
[2024-02-29] MEDS: Doxycycline Monohydrate 100 MG CAPSULE PO (18:08)
[2024-02-29] MEDS: Atorvastatin Calcium 20 MG TABLET PO (21:02)
[2024-02-29] MEDS: clonazePAM 1 MG TABLET PO (21:02)
[2024-03-01 02:46] VITALS: BP 120/67; PULSE 64; RESP 17; TEMP 36.4; O2SAT 93
[2024-03-01] MEDS: carisoprodoL 350 MG TABLET PO (02:54)
[2024-03-01] MEDS: Omeprazole 20 MG CAPSULE.DR PO (06:08)
[2024-03-01] MEDS: Doxycycline Monohydrate 100 MG CAPSULE PO (06:08)
[2024-03-01] MEDS: methylPREDNISolone Sod Succ 40 MG/ML VIAL IVPUSH (06:09)
[2024-03-01] MEDS: cefTRIAXone sodium 1 GM in 0.9 % Sodium Chloride 50 ML IV (06:17)
[2024-03-01 07:07] LABS: Hematocrit 41.4 % (37.0-47.0); Hemoglobin 13.1 g/dl (12.0-16.0); Mean Corpuscular HGB Conc 31.6 g/dl (31.0-35.0); Mean Corpuscular Hemoglobin 28.3 pg (27.0-33.0); Mean Corpuscular Volume 89.4 fL (80.0-98.0); Mean Platelet Volume 11.5 fL (9.4-12.3); Platelet Count 262 X10*3/uL (160-400); Red Blood Count 4.63 X10*6/uL (4.20-5.50); Red Cell Distribution Width 14.5 % (11.0-16.0)
[2024-03-01 07:22] LABS: Anion Gap 12 (12-20); Blood Urea Nitrogen 18 mg/dL (9-16); Calcium 9.1 mg/dL (8.4-10.2); Carbon Dioxide 27 mmol/L (22-29); Chloride 101 mmol/L (96-108); Creatinine Clr Calc Pharmacy 81.9; Estimated Glomerular Filt Rate > 60; Glucose Fasting 102 mg/dL (60-99); Potassium 4.4 mmol/L (3.3-5.1); Sodium 136 mmol/L (135-145)
[2024-03-01 07:37] VITALS: PULSE 66; RESP 17; O2SAT 92
[2024-03-01] MEDS: Albuterol/Iprat 2.5/0.5MG 3 ML AMPUL.NEB INHALE (07:37)
[2024-03-01 07:45] VITALS: BP 171/80; PULSE 65; RESP 18; O2SAT 96
[2024-03-01] MEDS: oxyCODONE HCl ER 10 MG TAB.ER.12H 20 MG PO (08:05)
[2024-03-01] MEDS: Sennosides 8.6 MG TABLET 17.2 MG PO (08:05)
[2024-03-01] MEDS: lisinopriL 10 MG TABLET PO (08:06)
[2024-03-01] MEDS: oxyCODONE HCl Immed Release 5 MG TABLET 10 MG PO (08:06)
[2024-03-01] MEDS: Meclizine HCl 25 MG TABLET 50 MG PO (08:06)
[2024-03-01] MEDS: 0.9 % Sodium Chloride Flush 3 ML SYRINGE IVFLUSH (08:08)
--- NOTE | 2024-03-01 08:52 | P.DS_ITS ---
DS: Providers Provider Date of Service: 03/01/24 Date of admission: 02/27/24 18:54 Primary care physician: Atul Boyle MD DS: Diagnosis Discharge Diagnosis (1) Pneumonia: Status: Acute DS: Summary Hospital Course Hospital Course: from initial hpi: 68-year-old female with a PMH significant for?COPD not on home O2, HLD, hx of SBO with resection, abdominal hernias, chronic lower back pain on chronic opioids who presents to the ED for evaluation of SOB, cough, and hypoxia. Pt states symptoms began 3 weeks ago when she developed cough, SOB/TORRES, and difficulty breathing. Cough was initially productive of grayish sputum, but has been mostly clear for the last week. Patient has a pulse ox reader at home and noted she was hypoxic into the 80s. Began using her 's home O2 two weeks ago and has been wearing it constantly since then. Today patient presented to her PCP who checked her O2 saturation and sent her to the ED for further evaluation when she was noted to be hypoxic. Denies fever, chills, nausea, vomiting, abdominal pain. No chest pain/pressure, palpitations. Denies headache. No recent weight loss, or increased fatigue. In the ED pt was afebrile but hypoxic as low as 84% on room air. Labs were grossly unremarkable. No leukocytosis. Stable H&H. No significant electrolyte abnormalities. Renal and hepatic function baseline. BNP WNL. Tested negative for COVID, RSV, flu. CXR found right lower lobe consolidation likely reflecting pneumonia. CTA of chest pending. EKG demonstrated sinus rhythm with PACs and no evidence of significant ST elevations or depressions. Pt was treated with DuoNeb, cefepime, ondansetron, and hydromorphone. Pt will be admitted to the hospital for treatment and further evaluation of acute hypoxic respiratory failure in setting of COPD exacerbation with superimposed pneumonia. hospital course: Patient was admitted for acute hypoxic respiratory failure secondary to COPD with acute decompensation and right lower lobe pneumonia. She was treated with ceftriaxone doxycycline as well as IV Solu-Medrol and bronchodilators. She is weaned to room air and her symptoms significantly improved. She will be discharged home on 5 more days of prednisone, cefuroxime, doxycycline. For hyperlipidemia she was continued on statin. For morbid obesity weight loss recommended. For chronic low back pain with opiate dependence she was continued on oxycodone. Time Attestation Discharge Coordination Time (in mins): 35 Quality: Safe Use of Opioids Does Pt have an Active Cancer Diagnosis on the Problem List?: No Quality: Stroke Does the patient have a stroke diagnosis?: No Physical Exam Vital Signs: Vital Signs: Last Vital Signs Temp 97.5 F 03/01/24 02:46 Pulse 65 03/01/24 07:45 Resp 18 03/01/24 07:45 BP 171/80 H 03/01/24 07:45 Pulse Ox 96 03/01/24 07:45 O2 Del Method Room Air 03/01/24 07:45 O2 Flow Rate 1 02/28/24 14:43 BMI result Body Mass Index 41.4 General: AO X 3, no acute distress Resp: CTA bilateral, no accessory muscles used CVS: S1,S2,RRR GI: soft, non tender, non distended Neuro: motor grossly intact, alert Psych: appropriate affect, appropriate insight DS: Data Data Completed and Pending Labs on day of discharge: Laboratory Results - last 24 hr 03/01/24 05:41 WBC 8.0 RBC 4.63 Hgb 13.1 Hct 41.4 MCV 89.4 MCH 28.3 MCHC 31.6 RDW 14.5 Plt Count 262 MPV 11.5 Absolute Nucleated RBC 0.000 Nucleated RBC % (auto) 0.0 Sodium 136 Potassium 4.4 Chloride 101 Carbon Dioxide 27 Anion Gap 12 BUN 18 H Creatinine 0.71 Estim Creat Clear Calc 81.9 Estimated GFR > 60 Fasting Glucose 102 H Calcium 9.1 Preliminary micro results at discharge 02/27/24 16:35 Blood Culture - Preliminary Blood - Venous No growth after 48 hours. Discharge Plan Discharge Anticipated Discharge Date/Time: 03/01/24 08:49 Patient Disposition: Home, Self-Care Discharge Diagnosis: pna Referrals: Atul Boyle MD [Primary Care Provider] - 1 Week Discharge Medications: New doxycycline monohydrate 100 mg Capsule 100 mg PO Q12H Qty: 10 0RF cefuroxime axetil 500 mg tablet 500 mg PO BID Qty: 10 0RF prednisone 20 mg tablet 40 mg PO DAILY Qty: 10 0RF Continued clonazepam 0.5 mg tablet 0.5 mg PO DAILY PRN (Reason: Anxiety) pantoprazole 40 mg tablet,delayed release (DR/EC) 40 mg PO DAILY@0630 nystatin 100,000 unit/gram cream 1 appl topical BID PRN (Reason: Rash) lisinopril 10 mg tablet 10 mg PO DAILY oxycodone [OxyContin] 20 mg tablet,oral only,ext.rel.12 hr 20 mg PO BID meclizine 25 mg tablet 50 mg PO TID simvastatin 40 mg tablet 40 mg PO BEDTIME senna 8.6 mg capsule 17.2 mg PO DAILY clonazepam 1 mg tablet 1 mg PO BEDTIME oxycodone 10 mg tablet 10 mg PO QID carisoprodol 350 mg tablet 350 mg PO TID PRN (Reason: Pain) ondansetron 4 mg tablet,disintegrating 4 mg PO Q8H PRN (Reason: nausea/vomiting) Discharge Orders: Discharge Order (Routine); Ordered 03/01/24 Ordered By: Giancarlo Hernandez Diet: Advance to usual diet Activity on Discharge: As tolerated Stand Alone Forms: Patient Portal Discharge page Print Language: Moldovan Care Plan Goals: recovery Health Concerns: pna, copd Plan of Treatment: 5 more days ceftin, doxy, prednisone Assessment: see above
--- NOTE | 2024-03-01 09:10 | MHC.CM.PN ---
EMR reviewed. Patient medically cleared for dc home self care. [facility] will transport home at 10am. RN aware.
[2024-03-01 11:07] LABS: VBG Base Excess 5.4 mmol/L; VBG HCO3 31 mmol/L (22-26); VBG pCO2 50 mmHg; VBG pO2 42 mmHg
== END 2024-03-01 09:55 | disposition home or self-care (01) | DRG 193 ==
LOC: HO.ED 16:27 → HO.EDOVER 19:00 → HO.S3 02-28 12:45
PROVIDERS: Student in an Organized Health Care Education/Training Program; Admitting Provider Student in an Organized Health Care Education/Training Program; Emergency Provider Internal Medicine; PCP Internal Medicine; Visit Provider Internal Medicine
DX: J18.9 Pneumonia, unspecified organism (principal); J96.01 Acute respiratory failure with hypoxia; J44.0 Chronic obstructive pulmonary disease with (acute) lower respiratory infection; J44.1 Chronic obstructive pulmonary disease with (acute) exacerbation; F11.20 Opioid dependence, uncomplicated; Z68.41 Body mass index [BMI] 40.0-44.9, adult; E66.01 Morbid (severe) obesity due to excess calories; E78.5 Hyperlipidemia, unspecified; R42 Dizziness and giddiness; F17.210 Nicotine dependence, cigarettes, uncomplicated; G89.29 Other chronic pain; M54.50 Low back pain, unspecified; Z71.6 Tobacco abuse counseling; Z20.822 Contact with and (suspected) exposure to COVID-19; Z91.040 Latex allergy status; Z79.899 Other long term (current) drug therapy
CPT/HCPCS: 0241U; 36415; 71046; 71275; 80048; 80053; 82803; 83605; 83880; 85025; 85027; 87040; 87147; 87205; 93005; 99285; J0692; J0696; J1170; J1650; J2405; J2919; Q9967

== ENCOUNTER → 2024-02-27 14:34 | Outpatient (BNV) | payer MEDICARE, MEDICAID, SELFPAY | PROVIDERS: Admitting Provider Student in an Organized Health Care Education/Training Program; Emergency Provider Internal Medicine; PCP Internal Medicine; Visit Provider Internal Medicine Cardiovascular Disease | DX: I49.1 Atrial premature depolarization (principal) | CPT/HCPCS: 93010 ==

== ENCOUNTER → 2024-02-27 18:54 | Outpatient (BNV) | payer MEDICARE, MEDICAID, SELFPAY | PROVIDERS: Admitting Provider Student in an Organized Health Care Education/Training Program; Emergency Provider Internal Medicine; PCP Internal Medicine; Visit Provider Student in an Organized Health Care Education/Training Program | DX: J18.9 Pneumonia, unspecified organism (principal) | CPT/HCPCS: 99223; 99232; 99233; 99239 ==

== ENCOUNTER 2024-03-08 10:16 | Outpatient (REF) | payer MEDICARE, MEDICAID, SELFPAY ==
--- NOTE | ~2024-03-08 | XR_ITS ---
EXAMINATION: XR CHEST CLINICAL INFORMATION: Cough, shortness of breath. Follow-up pneumonia. COMPARISON: 02/27/2024 TECHNIQUE: 2 views of the chest were obtained. FINDINGS: Lungs are mildly hyperinflated. Significant improvement compared to 02/27/2024. A few residual linear opacities of atelectasis are present in the right lower lobe. No overt airspace disease on this follow-up exam. No pleural effusion or pneumothorax. Cardiomediastinal silhouette is mildly enlarged. Multiple old healed bilateral rib fractures. XR/XR chest 2V IMPRESSION: There is a resolving right lower lobe pneumonia. A few residual linear opacities of atelectasis are present in the right lower lobe on this follow-up exam. No new infiltrates.
== END 2024-03-08 10:17 | disposition home or self-care (01) ==
LOC: HO.HMGCX 10:16
PROVIDERS: PCP Internal Medicine; Visit Provider Internal Medicine
DX: Z87.01 Personal history of pneumonia (recurrent) (principal)
CPT/HCPCS: 71046

== ENCOUNTER → 2025-04-24 18:43 | Outpatient (BNV) | payer MEDICARE, SELFPAY | PROVIDERS: Emergency Provider Emergency Medicine Emergency Medical Services; PCP Internal Medicine; Visit Provider Nuclear Medicine | DX: S09.90XA Unspecified injury of head, initial encounter (principal); M25.562 Pain in left knee; W19.XXXA Unspecified fall, initial encounter | CPT/HCPCS: 70450; 70486; 72125; 73562 ==

== ENCOUNTER 2025-04-24 18:59 | Emergency (ER) | payer MEDICARE, MEDICAID, SELFPAY ==
--- NOTE | ~2025-04-24 | CT_ITS ---
CLINICAL HISTORY: fall, head injury CT Brain without contrast Comparison: None FINDINGS: Cortical sulci: There is diffuse prominence of the cortical sulci compatible with age-related atrophy. Ventricles: Normal for age Brain parenchyma: There is patchy lucency throughout the deep white matter indicating chronic microvascular leukomalacia. Extra axial spaces: Normal Posterior Fossa: Normal Extracranial soft tissues: Normal Additional abnormality: None IMPRESSION: Age-related atrophy with chronic microvascular leukomalacia. No hemorrhage, mass effect, or acute findings identified. This document has been electronically signed by: Rafael Lawrence MD on 04/24/2025 20:25:08
--- NOTE | ~2025-04-24 | CT_ITS ---
CLINICAL HISTORY: fall, head injury CT maxillofacial without contrast Comparison: None provided Findings: No acute fractures. No dislocations. Temporomandibular joints are intact. Paranasal sinuses and mastoid air cells clear. Orbits normal. Visualized intracranial contents are within normal limits. No foreign bodies. IMPRESSION: No acute facial bone fracture. This document has been electronically signed by: Rafael Lawrence MD on 04/24/2025 20:19:47
--- NOTE | ~2025-04-24 | CT_ITS ---
CLINICAL HISTORY: fall, head injury CT cervical spine without contrast Comparison: None provided Findings: Vertebral alignment is within normal limits. There is mild degenerative change. No acute fractures or dislocations. Visualized intracranial contents are unremarkable. No cervical fluid collections or masses. Lung apices are clear. IMPRESSION: No acute findings. This document has been electronically signed by: Rafael Lawrence MD on 04/24/2025 20:14:46
--- NOTE | ~2025-04-24 | XR_ITS ---
CLINICAL HISTORY: fall, left knee pain 4 view left knee Comparison: None provided Findings: No fractures or dislocations. There is mild degenerative change. No joint effusion. No radiopaque foreign body. IMPRESSION: 1. No acute findings. This document has been electronically signed by: Rafael Lawrence MD on 04/24/2025 20:06:27
[2025-04-24 19:10] VITALS: BP 184/78; PULSE 74; O2SAT 97
[2025-04-24 19:11] VITALS: BP 126/72; PULSE 89; RESP 20; TEMP 36.6; O2SAT 97; BMI 36.6
--- NOTE | 2025-04-24 19:23 | ED_ITS ---
HPI - General Adult General Chief complaint: Fall Stated complaint: Mechanical fall, -loc/thinners Time Seen by Provider: 04/24/25 19:23 Source: patient and EMS Mode of arrival: EMS Limitations: no limitations History of Present Illness ED Provider: Amber Brennan PA-C HPI narrative: Patient is a 69 year old assigned female at with a history of cor pulmonale presenting to the emergency department today with left knee and nose pain after a trip and fall. Patient states that she was at home when she tripped over a box and fell - striking her face. Patient states that she did not lose consciousness but did have a bloody nose. Patient denies any dizziness, lightheadedness, abdominal pain, nausea, vomiting, fever, chills, blurry vision, double vision, loss of vision, chest pain, difficulty breathing, shortness of breath, back pain, night sweats, pain with urination, increased urinary frequency, increased urinary urgency, blood in her urine or stool, syncope or a near syncopal episode, bowel incontinence, bladder incontinence, or any other complaints at this time. Relieving factors: none Exacerbating factors: none Associated symptoms: denies other symptoms Treatments prior to arrival: none Related Data Home Medications ?Medication ?Instructions ?Recorded ?Confirmed carisoprodol 350 mg tablet 350 mg PO TID PRN Pain 09/0302/27/24 clonazepam 1 mg tablet 1 mg PO BEDTIME Anxiety 09/0302/27/24 meclizine 25 mg tablet 50 mg PO TID 09/20/20 ondansetron 4 mg disintegrating 4 mg PO Q8H PRN nausea /vomiting 09/20/20 02/27/24 tablet oxycodone 10 mg tablet 10 mg PO QID Pain 09/20/20 0 02/27/24 sennosides 8.6 mg capsule (senna) 17.2 mg PO DAILY 02/27/24 simvastatin 40 mg tablet 40 mg PO BEDTIME 09/20/20 clonazepam 0.5 mg tablet 0.5 mg PO DAILY PRN Anxiety 02/27/24 02/27/24 lisinopril 10 mg tablet 10 mg PO DAILY 02/27/2402/02 nystatin 100,000 unit/gram topical 1 appl topical BID PRN Rash 02/27/24 02/27/24 cream oxycodone 20 mg tablet,crush 20 mg PO BID 02/27/24 resistant,extended release 12 hr (OxyContin) pantoprazole 40 mg tablet,delayed 40 mg PO DAILY@0630 02/27/24 02/27/24 release Previous Rx's ?Medication ?Instructions ?Recorded cefuroxime axetil 500 mg tablet 500 mg PO BID #10 tabs 03/01/24 doxycycline monohydrate 100 mg 100 mg PO Q12H #10 caps 03/01/24 capsule prednisone 20 mg tablet 40 mg (2 x 20 mg) PO DAILY # 10 tabs 03/01/24 Allergies Allergy/AdvReac Type Severity Reaction Status Date / Time erythromycin base Allergy Severe ANAPHYLAXIS Verified 04/24/25 19:13 (ERYTHROMYCIN BASE) latex (LATEX) Allergy Severe HIVES Verified 04/24/25 19:13 morphine (MORPHINE) Allergy Intermediate NAUSEA & Verified 04/24/25 19:13 VOMITING codeine (CODEINE) Allergy Unknown HIVES Verified 04/24/25 19:13 Penicillins (PENICILLINS) Allergy Unknown UNKNOWN Verified 04/24/25 19:13 cephalexin (From Keflex) AdvReac Intermediate Nausea/Vomi Verified 04/24/25 19:13 ting Review of Systems Constitutional: Constitutional: Reports no additional constitutional complaints, Denies chills, Denies fever(s) and Denies night sweats Eyes: Eyes: Reports no additional eye complaints, Denies blurry vision, Denies change in vision, Denies diplopia, Denies eye discharge, Denies loss of vision and Denies eye pain ENT: Denies dizziness and Reports nose pain Cardiovascular: Cardiovascular: Reports no additional cardiovascular complaints, Denies chest pain, Denies lightheadedness, Denies Loss of Consciousness and Denies dyspnea Respiratory: Respiratory: Reports no additional respiratory complaints and Denies dyspnea Gastrointestinal: Gastrointestinal: Reports no additional gastrointestinal complaints, Denies abdominal pain, Denies melena, Denies hematochezia, Denies change in bowel habits and Denies change in stool character Genitourinary: Genitourinary: Denies hematuria, Denies urinary frequency, Denies dysuria, Denies urinary incontinence, Denies urinary hesitancy and Denies urinary urgency Musculoskeletal: Musculoskeletal: Reports no additional musculoskeletal complaints, Denies numbness and Denies tingling Comments: left knee pain Neurologic: Denies dizziness, Denies loss of vision, Denies numbness and Denies tingling Psychiatric: Psychiatric: Reports no additional psychiatric complaints Endocrine: Endocrine: Reports no additional endocrine complaints Hematologic/Lymphatic: Hematologic/Lymphatic: Reports no additional hematologic/lymphatic complaints Allergic/Immunologic: Allergic/Immunologic: Reports no additional allergic/ immunologic complaints PMFSH Past Medical History Attestation statement: The following information was validated with the patient. Source: old records reviewed and nursing notes reviewed Medical History Chronic lower back pain SBO (small bowel obstruction) Obesity hypoventilation syndrome Chronic respiratory failure History of cardiac arrest Surgical History Status post colon resection History of total hysterectomy History of section Family History Family History Father Renal failure Mother Stroke Social History Social History Household Members: Spouse and Family Housing: House Do you presently have visiting nurse or other home services: Yes ([employer]) Patient Tobacco Use Status: Former Tobacco user Tobacco use type: Cigarette Cigarettes Per Day: 2 Years Smoked: since age 16 Advance Directives: No Advance Directives Information Provided: No service: No Physical Exam ED Vital Signs: Vital Signs - 24 hr 04/24/25 19:11 04/24/25 20:49 Temperature 97.8 F 97.8 F Pulse Rate 89 89 Respiratory Rate 20 20 Blood Pressure 126/72 126/72 Pulse Oximetry 97 97 Oxygen Delivery Method Room Air Room Air BMI result Body Mass Index 36.6 Const General: cooperative, no acute distress, alert and awake Nutritional Appearance: well nourished Orientation/consciousness: patient oriented x3 HENMT Head: Yes normal to inspection and Yes atraumatic Ears: hearing grossly normal bilaterally and external ears normal General nose exam: Normal external nose present, no nasal discharge noted and no epistaxis Face and sinus: Yes normal facial exam, No abrasion and No laceration Mouth: Normal oral and palatal mucosa present, no drooling and no muffled voice Eyes General: appearance normal, both eyes and all related structures Periorbital: periorbital findings normal Eyelids: Yes eyelids normal Conjunctivae: conjunctivae normal Pupils: Equal, round and reactive pupils present EOM: EOMs intact bilaterally Neck Neck: Yes normal visual inspection, Yes full ROM and Yes no lymphadenopathy Resp Effort & Inspection: normal respiratory effort and able to speak in complete sentences Neuro General: patient oriented x3, moves all extremities and CN's II-XI intact bilaterally Cranial nerves: Yes Equal, round and reactive pupils present Cognition (Neuro): normal cognition Extrem General: Yes normal to inspection, Yes full ROM and Yes capillary refill normal Psych Appearance: grossly normal Mental Status: mental status grossly normal Affect: normal affect Attitude: cooperative Thought process: Normal thought process present Thought content: Normal thought content present Insight: Good insight present (Psych) Medical Decision Making Medical Decision Making MDM Narrative: Patient is a 69 year old assigned female at with a history of cor pulmonale presenting to the emergency department today with left knee and nose pain after a trip and fall. Patient's physical exam was unremarkable. Patient's left knee x-ray showed no acute process. Patient's CT head, c-spine, and facial bones showed no acute process. I explained my physical exam findings as well as all test results to the patient. I answered all questions asked by the patient. I stressed the importance of the patient taking her medication as directed (either prescribed or as the over the counter packaging recommends). I stressed the importance of the patient following up with her primary care provider. I stressed the importance of the patient returning to the emergency department immediately if her symptoms were to worsen or if she were to develop any dizziness, shortness of breath, difficulty breathing, chest pain, blurry vision, loss of vision, nausea, vomiting, abdominal pain, fever, chills, back pain, or any other complaints. Patient verbalized agreement and understanding with this treatment plan and discharge. Differential Diagnosis Differential Diagnoses: The differential diagnosis associated with the presentation includes Fall Nasal fracture Contusion Admission/Observation Consideration of admission/observation: Escalation of care including admission/observation considered Patient would have been admitted to the hospital had her work up had any findings where hospital admission was appropriate and her clinical presentation warranted hospital admission. Independent Interpretation I performed an independent interpretation of an: Plain X-Ray and CT Scan Interpretation: My interpretation is in agreement with the radiologist's impression of these imaging studies. Report Number: [id number]: Total DLP = 0.00 mGy-cm CLINICAL HISTORY: fall, head injury CT Brain without contrast Comparison: None FINDINGS: Cortical sulci: There is diffuse prominence of the cortical sulci compatible with age-related atrophy. Ventricles: Normal for age Brain parenchyma: There is patchy lucency throughout the deep white matter indicating chronic microvascular leukomalacia. Extra axial spaces: Normal Posterior Fossa: Normal Extracranial soft tissues: Normal Additional abnormality: None IMPRESSION: Age-related atrophy with chronic microvascular leukomalacia. No hemorrhage, mass effect, or acute findings identified. This document has been electronically signed by: Rafael Lawrence MD on 04/24/2025 20:25:08 Dictated By: Rafael Lawrence MD Signed By: Electronically signed by Rafael Lawrence MD 04/24/252024 Report Number: [id number]: Total DLP = 0.00 mGy-cm CLINICAL HISTORY: fall, head injury CT maxillofacial without contrast Comparison: None provided Findings: No acute fractures. No dislocations. Temporomandibular joints are intact. Paranasal sinuses and mastoid air cells clear. Orbits normal. Visualized intracranial contents are within normal limits. No foreign bodies. IMPRESSION: No acute facial bone fracture. This document has been electronically signed by: Rafael Lawrence MD on 04/24/2025 20:19:47 Dictated By: Rafael Lawrence MD Signed By: Electronically signed by Rafael Lawrence MD 04/24/252019 Report Number: [id number]: Total DLP = 2016.00 mGy-cm CLINICAL HISTORY: fall, head injury CT cervical spine without contrast Comparison: None provided Findings: Vertebral alignment is within normal limits. There is mild degenerative change. No acute fractures or dislocations. Visualized intracranial contents are unremarkable. No cervical fluid collections or masses. Lung apices are clear. IMPRESSION: No acute findings. This document has been electronically signed by: Rafael Lawrence MD on 04/24/2025 20:14:46 Dictated By: Rafael Lawrence MD Signed By: Electronically signed by Rafael Lawrence MD 04/24/252015 CLINICAL HISTORY: fall, left knee pain 4 view left knee Comparison: None provided Findings: No fractures or dislocations. There is mild degenerative change. No joint effusion. No radiopaque foreign body. IMPRESSION: 1. No acute findings. This document has been electronically signed by: Rafael Lawrence MD on 04/24/2025 20:06:27 Dictated By: Rafael Lawrence MD Signed By: Electronically signed by Rafael Lawrence MD 04/24/252006 Radiology Impression Discussion of test interpretation with radiology: I have reviewed the radiologist's reading. Independent Historian Clinical information obtained from an independent historian. History obtained from or confirmed by: EMS (EMS provided additional history and confirmed the history provided by the patient. ) Discharge Plan Discharge Clinical Impression: Fall Qualifiers: Encounter type: initial encounter Qualified Code(s): W19.XXXA - Unspecified fall, initial encounter Patient Disposition: Home, Self-Care Instructions: Fall Prevention (ED) Additional Instructions: Your imaging today was reassuring that there is no fractures / breaks in your face, head, neck, or left knee. Follow up with your primary care provider. Return to the emergency department immediately if your symptoms worsen or if you develop any numbness, tingling, dizziness, shortness of breath, difficulty breathing, chest pain, blurry vision, loss of vision, nausea, vomiting, abdominal pain, fever, chills, back pain, or any other complaints. Please see the information below about our Patient Portal. If you are not yet enrolled in the [facility] Patient Portal, you will receive an enrollment email invitation following your visit to any [facility] setting. You may also self-enroll in the Patient Portal by visiting our website: [email or web address] The following information is required to access the Patient Portal: - Your [facility] Medical Record Number - Your personal home email address (must match what is in your electronic medical record, Registration staff can assist with this) - Name - Date of Capabilities of the Patient Portal: - Message some providers - View upcoming appointments - Access your health summary, medical history, and visit history - View current conditions and allergies - View procedure and lab results - View your medications, including guidelines, side effects, and precautions - Complete pre-appointment questionnaires requested by your provider - Ready summary reports of your office visits and procedures To access the Patient Portal Mobile [employer], follow these directions: - Search [email or web address] in the [employer] Store or [email or web address] Store - Download the [employer] - Search for [facility] - Enter your login/password Prescriptions: No Action clonazepam 0.5 mg tablet 0.5 mg PO DAILY PRN (Reason: Anxiety) pantoprazole 40 mg tablet,delayed release (DR/EC) 40 mg PO DAILY@0630 nystatin 100,000 unit/gram cream 1 appl topical BID PRN (Reason: Rash) lisinopril 10 mg tablet 10 mg PO DAILY oxycodone [OxyContin] 20 mg tablet,oral only,ext.rel.12 hr 20 mg PO BID doxycycline monohydrate 100 mg Capsule 100 mg PO Q12H Qty: 10 0RF cefuroxime axetil 500 mg tablet 500 mg PO BID Qty: 10 0RF prednisone 20 mg tablet 40 mg PO DAILY Qty: 10 0RF meclizine 25 mg tablet 50 mg PO TID simvastatin 40 mg tablet 40 mg PO BEDTIME senna 8.6 mg capsule 17.2 mg PO DAILY clonazepam 1 mg tablet 1 mg PO BEDTIME oxycodone 10 mg tablet 10 mg PO QID carisoprodol 350 mg tablet 350 mg PO TID PRN (Reason: Pain) ondansetron 4 mg tablet,disintegrating 4 mg PO Q8H PRN (Reason: nausea/vomiting) Referrals: Atul Boyle MD [Primary Care Provider, Internal Medicine] Interventions: ED Discharge Assessment Last Done: 04/24/25 20:49 Discharge Date/Time: 04/24/25 20:49 Print Language: Korean
[2025-04-24 20:49] VITALS: BP 126/72; PULSE 89; RESP 20; TEMP 36.6; O2SAT 97
== END 2025-04-24 20:49 | disposition home or self-care (01) ==
PROVIDERS: Emergency Provider Emergency Medicine Emergency Medical Services; PCP Internal Medicine
DX: S89.92XA Unspecified injury of left lower leg, initial encounter (principal); R51.9 Headache, unspecified; M25.562 Pain in left knee; M54.2 Cervicalgia; X58.XXXA Exposure to other specified factors, initial encounter; Y93.9 Activity, unspecified; Y92.9 Unspecified place or not applicable; Y99.8 Other external cause status
CPT/HCPCS: 70450; 70486; 72125; 73562; 99282; 99284

== ENCOUNTER 2025-06-24 13:01 | Outpatient (AMB) | payer MEDICARE, MEDICAID, SELFPAY ==
--- NOTE | 2025-06-24 13:00 | A.OFFPC_ITS ---
Vital Signs 06/24/25 13:25 Height 5 ft 2.2 in Weight 196 lb 8 oz BMI 35.7 BP 140/94 H Blood Pressure Location Lt brachial Position Sitting Respiration 16 Pulse 73 Pulse Source Pulse Oximeter Temp 98 F Temp Source Temporal Artery Scan Pulse Oximetry (%) 96 Oxygen Delivery Method Room Air Intake Visit Reasons: Shruti Oneil / Dr. Boyle/[facility] 06/16 Intake Note: Visit Reason: TCM Intake Note: Patient is here for hospital discharge follow up. 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 Resort Housekeeper: Not Required per policy Accompanied by: Daughter Allergies erythromycin base (ERYTHROMYCIN BASE) Allergy (Severe, Verified 06/24/25 14:01) ANAPHYLAXIS latex (LATEX) Allergy (Severe, Verified 06/24/25 14:01) HIVES morphine (MORPHINE) Allergy (Intermediate, Verified 06/24/25 14:01) NAUSEA & VOMITING codeine (CODEINE) Allergy (Unknown, Verified 06/24/25 14:01) HIVES Penicillins (PENICILLINS) Allergy (Unknown, Verified 06/24/25 14:01) UNKNOWN cephalexin (From Keflex) Adverse Reaction (Intermediate, Verified 06/24/25 14:01) Nausea/Vomiting Medication List - Last Reconciled 06/24/25 by Della Jaramillo PA-C carisoprodol 350 mg PO TID PRN lactulose 30 mL PO DAILY lisinopril 10 mg PO DAILY meclizine 50 mg PO TID nystatin 1 appl topical BID PRN ondansetron 4 mg PO Q8H PRN oxycodone 10 mg PO QID oxycodone ER (OxyContin) 20 mg PO BID pantoprazole 40 mg PO DAILY@0630 prednisone 40 mg (2 x 20 mg) PO DAILY sennosides (senna) 17.2 mg PO DAILY simvastatin 40 mg PO BEDTIME Tobacco use date assessed: 06/24/25 Fall risk assessment: 1 Fall in past year Last assessed Fall Risk: 06/24/25 Dental Screening Dental Screen Date: 06/24/25 Did you have a dental visit in the last 12 months?: No Did you have a dental problem in the last 6 months where you did not have access to dental care?: No Was dental information given to patient?: No HPI Shruti Oneil / Dr. Boyle/[facility] 06/16 HPI Details Patient being seen here today she was a transfer from Dr. Boyle although she was already seen at the [facility] primary care. Therefore I discussed this with Dr. Henderson he reported that due to she already establish a new provider after Dr. Thompson and being prescribed narcotics and she will have to continue her care at the [facility] primary care. We discussed this while in the office today. For her next and future visits patient will be continuing her care at [facility] primary care. HPI Comments History of Present Illness Details Patient presents to the office for a TCM visit. Date of admission: 06/16/2024 Date of discharge: 06/17/2025 This is a Follow-up from admission at [facility] HPI/hospital course/discharge summary: The patient is a 69-year-old female presenting for a hospital discharge follow- up after being admitted for a small bowel obstruction. The patient was admitted to [facility] on June 15 with complaints of abdominal pain and vomiting, while still passing gas but without bowel movements. She has a history of chronic small bowel obstructions and has u ndergone surgical repair in the past, which resulted in a prolonged recovery period. During her recent hospitalization, she was made NPO and managed with a small bowel protocol, including a KUB that showed contrast in the colon. She experienced diarrhea and flatulence, with her pain being controlled and tolerating a regular diet upon discharge. The patient has multiple hernias, with no stomach wall, and her liver is located in the middle of these hernias. Surgical intervention is not recommended due to the high risk associated with her previous surgery 11 years ago, which led to a medicated coma and extended hospitalization. The patient also has diverticulosis without evidence of diverticulitis, as noted in her recent imaging studies. Discharged to/Current Location: Home Lives with: and daughter is [employer] and works for her 33.15 hours Diagnosis: Abdominal pain; small-bowel obstruction Procedures performed: Patient had KUB and a CT scan abdomen pelvis with IV contrast and was kept NPO New medications: No new medications were added Discontinued medications: No medications were discontinued Change medications/dosing: There were no changes in medications Pending labs: There are no pending labs Pending diagnostic test: There are no pending diagnostic test Any Follow-up Labs required? Daughter and patient recommending basic labs therefore ordered at this Any Follow-up Diagnostic test required? No pending diagnostic test required at this time How are you feeling? Patient reports she still has abdominal pain although it is improved and she is not vomiting Are you in any pain or discomfort? Patient reports she always has chronic abdominal pain due to the multiple hernias that she has and is not a surgical candidate per patient and daughter Do you have any questions about your condition or discharge instructions? Patient does not have any questions about her condition or discharge instruction Were you able to get your medications filled? Patient currently on all her previously prescribed medications Do you have any questions about your medications? Patient does not have any questions about her medications at this time Any referrals required? No referrals required at this time although will refer to gastroenterology for further evaluation management Were you able to schedule your follow-up appointment? Patient was able to schedule her appointments although she will be referred back to [facility] a [facility] as she was already seen and prescribed medications including her narcotics and she establish care with them already. I discussed this with Dr. Henderson he reported that she will continue her care as she can be health center after today's visit. If home health was ordered, have they contact you? No additional services indicated patient already has [employer] in place and receives 33.15 hours from her daughter this includes nighttime hours. She has meals on wheels on Friday. She does not feel like she needs a VNA. She does not feel like she needs to go to rehab. She does not feel like she needs any additional services at this time or transportation services. Educational need/resources: What support system do you have? Patient has daughter, grandson, son, , other daughter multiple family members that help Social History - Family status: Lives with family, who provide care and support. - Functional status: Receives 33 hours a nd 15 minutes of [employer] services weekly, including 14 hours overnight. - Nutrition: Receives Meals on Wheels on a week, although dissatisfaction with the meals was noted. [facility] Medical History (Updated 06/24/25 @ 17:26 by Della Jaramillo PA-C) Diverticulosis Hospital discharge follow-up Abdominal hernia Bowel obstruction Chronic pain Chronic lower back pain SBO (small bowel obstruction) Obesity hypoventilation syndrome Chronic respiratory failure History of cardiac arrest Surgical History Status post colon resection History of total hysterectomy History of section Family History Father Renal failure Mother Stroke Social History Household Members: Spouse and Family Housing: House Do you presently have visiting nurse or other home services: Yes ([employer]) Alcohol intake: current Alcohol intake frequency: does not drink Patient Tobacco Use Status: Current everyday Tobacco user Tobacco use type: Cigarette Packs per year/per ci.00 service: No Current occupational status: disabled Cognitive needs: Yes (cane) Hearing needs: No Vision needs: Yes (rx glasses) Questionnaire PHQ-9 Over the last 2 weeks, how often have you been bothered by any of the following problems? 1. Little interest or pleasure in doing things: not at all 2. Feeling down, depressed, or hopeless: not at all 3. Trouble falling or staying asleep, or sleeping too much: not at all 4. Feeling tired or having little energy: not at all 5. Poor appetite or overeating: not at all 6. Feeling bad about yourself - or that you are a failure or have let yourself or your family down: not at all 7. Trouble concentrating on things, such as reading the newspaper or watching television: not at all 8. Moving or speaking so slowly that other people could have noticed. Or the opposite - being so fidgety or restless that you have been moving around a lot more than usual: not at all 9. Thoughts that you would be better off or of hurting yourself in some way: not at all Total score: 0 Depression Screening Interpretation: Negative Depression Screening Done: Yes 82004 - PHQ-9 Billing: Yes Source: Developed by Drs. Silas Heredia, Meg Krueger, León Wetzel and colleagues, with an educational alexis from [employer]. Thrive Questionnaire Date Thrive assessed: 06/24/25 I am a: Patient What is your living situation today?: I have a steady place to live Within the past 12 months, did the food you bought not last and you didn't have the money to get more?: Never true Within the past 12 months, did you worry whether your food would run out before you got money to buy more?: Never true Do you have trouble paying for medicines?: No Do you have trouble getting transportation to medical appointments?: No Do you have trouble paying your heating and electricity bill?: No Do you have trouble taking care of your child, family member or friend?: No Do you have trouble with day-to-day activities such as bathing, preparing meals, shopping, managing finances, etc.?: No Are you currently unemployed and looking for a job?: No Are you interested in more education?: No Please select the resources that you would like help with: None Currently or been in a relationship where the following occur: No concerns reported THRIVE Score: 0 AUDIT C Alcohol Use Questionnaire (AUDIT-C) 1. How often do you have a drink containing alcohol?: Never 3. How often do you have six or more drinks on one occasion?: Never Total Score: 0 Score Reviewed/Action Taken: No VIJAY-7 AMB Questionnaire VIJAY-7 Date VIJAY - 7 assessed: 06/24/25 Feeling nervous, anxious, or on edge: 3 = Nearly every day Not being able to stop or control worryin = Nearly every day Worrying too much about different things: 3 = Nearly every day Trouble relaxin = Nearly every day Being so restless that it is hard to sit still: 3 = Nearly every day Becoming easily annoyed or irritable: 3 = Nearly every day Feeling afraid as if something awful might happen: 3 = Nearly every day Total VIJAY-7 score (0-4 normal; 5-9 mild; 10-14 moderate; 15-21 severe): 21 Source: Developed by Drs. Silas Heredia, Meg Krueger, León Wetzel and colleagues, with an educational alexis from [employer]. VIJAY-7 Assessment Billing VIJAY-7 Assessment Tool: VIJAY-7 Assessment 15917 Review of Systems Const Details: - Gastrointestinal: Reports abdominal pain and vomiting, denies recent bowel movements initially, but reports diarrhea and flatulence during hospitalization. - Musculoskeletal: Denies any new musculoskeletal complaints. All systems reviewed & are unremarkable except as noted in HPI and below Physical exam (Primary Care) Vital Signs: Last Vital Signs Temp 98 F 06/24/25 13:25 Pulse 73 06/24/25 13:25 Resp 16 06/24/25 13:25 BP 140/94 H 06/24/25 13:25 Pulse Ox 96 06/24/25 13:25 Oxygen Delivery Method Room Air 06/24/25 13:25 Vitals signs have been reviewed. Care Plan Goal for BP management: <140/90 patient to monitor her blood pressure and bring to her primary care provider at next visit BMI result Body Mass Index 35.7 BMI Assessment/Plan discussion: High BMI High, discussed plan: lifestyle, weight reduction, dietary, physical activity, alcohol moderation and other Tobacco/Smoking Status: Tobacco use Status Tobacco use date assessed 06/24/25 06/24/25 13:03 Patient Tobacco Use Status Current everyday Tobacco 06/24/25 13:45 Tobacco use type Cigarette 06/24/25 13:45 PHQ-9: PHQ-9 Score PHQ-9: Total score 0 06/24/25 14:03 Depression Screening Interpretation: Negative Thrive Assessment: Date of Thrive Assessment Date Thrive assessed 06/24/25 06/24/25 13:03 Currently or been in a relationship where the following occur: No concerns reported Const Other: Appearance: Alert. Oriented X3. No acute distress. Head: Normal external exam. Normocephalic. Atraumatic. Eyes: Pupils are equal, round, and reactive to light. Extraocular movements intact. Conjunctiva and sclera normal. Eyelids normal. Throat: Pharynx normal. Uvula midline. Moist mucous membranes. Neck: Normal inspection. Neck supple. Full range of motion. Cardiovascular: Normal heart rate and rhythm. Heart sound normal. No murmurs noted. Pulses normal throughout. Respiratory: No respiratory distress. Painless inspiration. Breath sounds normal. No wheezes/rales/rhonchi noted. Chest nontender. No accessory muscle usage noted or decreased air movement noted. Abdomen: Soft and mild chronic tenderness diffusely which is chronic. Multiple hernias noted nonobstructed. No distention noted. No organomegaly noted. No visible injury noted. Back: Full range of motion noted. Skin: Skin warm and dry. Normal skin color. Normal skin turgor. No rashes/lesions/lacerations noted. Extremities: Extremities exhibit normal range of motion. Results Reviewed Results Reviewed: - Imaging: KUB showed contrast in the colon; CT scan indicated early or partial small bowel obstruction with transition point within the left lower pelvis, diverticulosis without evidence of diverticulitis. Coding Level of Care Code TCM High MDM <= 7 Days Complex EM visit Add On G2211 Diagnoses Hospital discharge follow-up Z09 Bowel obstruction K56.609 Abdominal hernia K46.9 Diverticulosis K57.90 Additional Codes VIJAY-7 Assessment Billing - VIJAY-7 Assessment Tool: VIJAY-7 Assessment 99084 ([id number]) PHQ-9 - 83777 - PHQ-9 Billing: Yes ([id number]) Time Spent (min) 60 Assessment & Plan Assessment & Plan (1) Hospital discharge follow-up: Code(s): Z09 - Encounter for follow-up examination after completed treatment for conditions other than malignant neoplasm Category: Medical Plan: The patient was advised to continue her previously prescribed medications and to take a stool softener and kuad-vik-sbykivx laxative as needed. She was instructed to avoid activities that cause discomfort, maintain normal activities, and drink 6 to 8 glasses of fluid per day. A follow-up with the outpatient office was recommended if needed, and basic blood work was suggested to check kidney function. (2) Bowel obstruction: Code(s): K56.609 - Unspecified intestinal obstruction, unspecified as to partial versus complete obstruction Category: Medical Plan: The patient was advised to continue her previously prescribed medications and to take a stool softener and dhhh-zsh-inkdcba laxative as needed. She was instruc phillip to avoid activities that cause discomfort, maintain normal activities, and drink 6 to 8 glasses of fluid per day. A follow-up with the outpatient office was recommended if needed, and basic blood work was suggested to check kidney function. (3) Abdominal hernia: Code(s): K46.9 - Unspecified abdominal hernia without obstruction or gangrene Category: Medical Plan: Surgical intervention is not recommended due to the high risk associated with p revious surgery. A referral to a supervisory geographer was made to explore non- surgical management options. (4) Diverticulosis: Code(s): K57.90 - Diverticulosis of intestine, part unspecified, without perforation or abscess without bleeding Category: Medical Plan: The patient was advised to maintain a regular diet and follow up as needed. Plan Plan Patient was informed and verbally consented to the use of an ambient scribe for clinic note documentation during this visit. 1. Small Bowel Obstruction The patient was advised to continue her previously prescribed medications and to take a stool softener and wbiu-ckq-zffaqzy laxative as needed. She was instructed to avoid activities that cause discomfort, maintain normal activities, and drink 6 to 8 glasses of fluid per day. A follow-up with the outpatient office was recommended if needed, and basic blood work was suggested to check kidney function. 2. Hernias Surgical intervention is not recommended due to the high risk associated with previous surgery. A referral to a supervisory geographer was made to explore non- surgical management options. 3. Diverticulosis The patient was advised to maintain a regular diet and follow up as needed. During the visit, I discussed the management of the patient's small bowel obstruction, emphasizing the importance of medication adherence and dietary modifications to prevent recurrence. I also explained the risks associated with surgical intervention for her hernias and the rationale for referring her to a supervisory geographer for further evaluation. Orders: Orders Comprehensive Met. Panel Today Z00.00 - Encounter for general adult medical examination without abnormal findings Complete Blood Count Auto Diff Today Z00.00 - Encounter for general adult medical examination without abnormal findings Magnesium Today Z00.00 - Encounter for general adult medical examination without abnormal findings Referrals Gastroenterology Referral K56.609 - Unspecified intestinal obstruction, unspecified as to partial versus complete obstruction Gastroenterology Referral K46.9 - Unspecified abdominal hernia without obstruction or gangrene, K56.609 - Unspecified intestinal obstruction, unspecified as to partial versus complete obstruction Patient Instructions: - Continue taking prescribed medications and use a stool softener and nbxs-uku-pbxniur laxative as needed. - Avoid activities that cause discomfort and maintain normal activities. - Drink 6 to 8 glasses of fluid per day. - Follow up with the outpatient office if needed and consider basic blood work to check kidney function. - Await contact from the supervisory geographer for further evaluation.
--- OUTSIDE RECORDS SUMMARY | 2025-06-24 13:04 | XMS_ITS | Clinical Summary ---
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 Active simvastatin (Zocor) 40 MG tablet Take 40 mg by mouth at bedtime. Active lisinopril 10 MG tablet Take 10 mg by mouth Once per day. Active pantoprazole (ProtoNix) 20 MG EC tablet Take 20 mg by mouth before breakfast. Do not crush, chew, or split. Active senna-docusate sodium (Senokot-S) 8.6-50 MG tablet Take 1 tablet by mouth Once per day. Active lactulose (Chronulac) 10 GM/15ML solution Take 20 g by mouth 3 times daily. Active oxyCODONE ER (OxyCONTIN) 20 MG 12 hr tablet Take 20 mg by mouth every 12 (twelve) hours. Do not crush, chew, or split. Active oxyCODONE ER (OxyCONTIN) 10 MG 12 hr tablet Take 10 mg by mouth every 6 (six) hours if needed for severe pain (severe pain). Do not crush, chew, or split. Active ondansetron (Zofran) 4 MG tabletIndicati ons:Bilious vomiting with nausea Take 1 tablet (4 mg) by mouth every 12 (twelve) hours if needed for nausea or vomiting. 20 tablet 1 05/30/20 25 Active carisoprodol (Soma) 350 MG tablet Take 2 tablets (700 mg) by mouth if needed in the morning, at noon, and at bedtime for muscle spasms. 30 tablet 05/30/20 25 025 Active oxyCODONE ER (OxyCONTIN) 20 MG 12 hr tabletIndicati ons:Chronic pain syndrome Take 1 tablet (20 mg) by mouth 2 times daily. 60 tablet 05/30/20 25 Active oxyCODONE (Roxicodone) 10 MG immediate release tabletIndicati ons:Chronic pain syndrome Take 1 tablet (10 mg) by mouth if needed in the morning, at noon, in the evening, and at bedtime for severe pain. 10 tablet 05/30/20 25 025 Active carisoprodol (Soma) 350 MG tablet Take 700 mg by mouth if needed in the morning, at noon, and at bedtime for muscle spasms. 025 Discontinued(Re order (will not trigger notification to Pharmacy)) ondansetron (Zofran) 4 MG tablet Take 4 mg by mouth every 12 (twelve) hours if needed for nausea or vomiting. 025 Discontinued(Re order (will not trigger notification to Pharmacy)) oxyCODONE (Roxicodone) 10 MG immediate release tablet Take 10 mg by mouth 4 times daily. 025 Discontinued(Re order (will not trigger notification to Pharmacy)) oxyCODONE HCl (OXYCONTIN PO) Take 20 mg by mouth 2 times daily. 03/21/20 18 025 Discontinued(Re order (will not trigger notification to Pharmacy)) Active Problems Problem Noted Date Diagnosed Date Encounter for medical examination to establish c are 05/30/2025 Assessment & Plan (05/30/2025 9:53 AM EDT): ER visits: sepsis (pneumonia) February 2025 Hospitalization: multiple due to small bowel obstruction Pmhx: bowel obstruction, hyperlipidemia, diverticulosis, BPPV, HTN, COPD, chronic abdominal pain Pshx: csec 1974, csec 1978, csec 1985, total hysterectomy 1986, hernia repairs with mesh 1989, laser eye surgery bleeding retina 2020 abdominal hernia repair All: codeine (vomits), keflex (rash/vomiting), Latex (rash, swelling) Meds: as above Mammogram : due (patient will schedule) Colonoscopy: Done [facility] 2019, cologuard will be ordered Chronic pain syndrome 05/30/2025 Encounters Date Type Department Care Team Description 05/30/2025 9:00 AM EDT Telemedicine [facility] [address] [place] [address] Jaxson Connell MD Encounter for medical examination to establish care (Primary Dx); Bilious vomiting with nausea; Screening for colon cancer; Chronic pain syndrome 05/30/2025 Telephone [facility] [address] [place], [place] [phone] Jaxson Connell MD 05/30/2025 Telephone [facility] [address], [place] [phone] Jaxson Connell MD Med Refill 05/30/2025 Travel from Last 3 Months Family History Medical History Relation Name Comments Kidney disease Father Eye cancer Maternal Grandmother Hypertension Mother Stroke Mother Relation Name Status Comments Father Maternal Grandmother Mother Social History Tobacco Use Types Packs/Day Years Used Date Smoking Tobacco: Every Day Cigarettes 0.5 49.6 Started: 1975 Passive Smoke Exposure: Current Smokeless Tobacco: Never Alcohol Use Standard Drinks/Week Comments Never 0 (1 standard drink = 0.6 oz pur e alcohol) Depression Answer Date Recorded Patient Health Questionnaire-9 Score 2 05/30/2025 Patient Health Questionnaire-9 Score 2 05/30/2025 Last PHQ-9: Questionnaire Data Not on file 0 05/30/2025 Housing Stability Answer Date Recorded What is your housing situation today? I have edwin romero 05/30/[address] you li ve. Do you have problems with any of the following? None of the above 05/30/2025 Food Insecurity Answer Date Recorded Within the past 12 months, y ou worried that your food would run out before you got money to buy more: Never True 05/30/2025 Within the past 12 months,th e food you bought just didn't last and you didn't have enough money to get more: Never True Transportation Answer Date Recorded In the past 12 months, has l ack of transportation kept you from medical appts, meetings, work or from getting things needed for daily living? No 05/30/2025 Utilities Answer Date Recorded In the past 12 months, has t he electric, gas, oil or water company threatened to shut off services in your home? No 05/30/2025 Depression Answer Date Recorded Patient Health Questionnaire-2 Score 2 05/30/2025 Internet Access Answer Date Recorded Internet Access Q1 Yes 05/30/2025 Internet Access Q2 Not on file 05/30/2025 Comments Unknown Sex and Gender Information Value Date Recorded Sex Assigned at Female 02/18/2025 1:42 PM EDT Legal Sex Female 1:41 PM EDT Gender Identity Female 05/27/2025 1:51 PM EDT Sexual Orientation Don't know 05/27/2025 1: 57 PM EDT Plan of Treatment Health Maintenance Due Date Last Done Comments CT Colonography 1955 Colonoscopy 1955 Colorectal Cancer Screening 1955 FIT DNA/Cologuard 1955 FIT 1955 FOBT 1955 Lipid Panel 1955 Sigmoidoscopy 1955 Hepatitis C Screening 1973 DTaP/Tdap/Td Vaccines (1 - Tdap) 1974 Mammogram 1995 Lung Cancer Screening 2005 Zoster Vaccines (1 of 2) 2005 Pneumococcal Vaccine: 50+ Years (2 of 2 - PCV) 11/21/2018 11/21/2017, 01/03/2013 COVID-19 Vaccine ( season) 2024 02/04/2022, 09/06/2021, 02/19/2021, Additional history exists Influenza Vaccine (#1) 2025 , 08/01/2023, 08/16/2022, Additional history exists Alcohol/Substance Use Screening 05/30/2026 05/30/2025 Depression Screening 05/30/2026 05/30/2025, 05/30/20 25 SDOH Screening 05/30/2026 05/30/2025 Tobacco Screening 05/30/2026 05/30/2025 RSV Patients and Patients Aged 60 years or older (1 - 1-dose 75+ series) 2030 HIB Vaccines Aged Out No longer eligi ble based on patient's age to complete this topic HPV Vaccines Aged Out No longer eligi ble based on patient's age to complete this topic Hepatitis A Vaccines Aged Out No long er eligible based on patient's age to complete this topic Hepatitis B Vaccines Aged Out No long er eligible based on patient's age to complete this topic IPV Vaccines Aged Out No longer eligi ble based on patient's age to complete this topic Meningococcal B Vaccine Aged Out No l onger eligible based on patient's age to complete this topic Meningococcal Vaccine Aged Out No gopal dejan eligible based on patient's age to complete this topic RSV under 20 months Aged Out No longe r eligible based on patient's age to complete this topic Rotavirus Vaccines Aged Out No longer eligible based on patient's age to complete this topic Insurance [facility] MEDICARE Care Teams Corner Trimmer Operator Relationship Specialty Start Date End Date Jaxson Connell MD [address] [place] [address] PCP - General Internal Medicine 05/30/25
[2025-06-24 13:25] VITALS: BP 140/94; PULSE 73; RESP 16; TEMP 36.6; O2SAT 96; BMI 35.7
== END 2025-06-24 14:36 | disposition home or self-care (01) ==
LOC: HO.HMCSH 13:01
PROVIDERS: PCP Internal Medicine; Visit Provider Physician Assistant Medical
DX: K56.609 Unspecified intestinal obstruction, unspecified as to partial versus complete obstruction (principal); K46.9 Unspecified abdominal hernia without obstruction or gangrene; K57.90 Diverticulosis of intestine, part unspecified, without perforation or abscess without bleeding; Z09 Encounter for follow-up examination after completed treatment for conditions other than malignant neoplasm

== ENCOUNTER → 2025-06-24 13:01 | Outpatient (BNVA) | payer MEDICARE, MEDICAID, SELFPAY | PROVIDERS: PCP Internal Medicine; Visit Provider Physician Assistant Medical | DX: Z09 Encounter for follow-up examination after completed treatment for conditions other than malignant neoplasm (principal); K56.609 Unspecified intestinal obstruction, unspecified as to partial versus complete obstruction; K46.9 Unspecified abdominal hernia without obstruction or gangrene; K57.90 Diverticulosis of intestine, part unspecified, without perforation or abscess without bleeding; F17.200 Nicotine dependence, unspecified, uncomplicated; Z71.6 Tobacco abuse counseling | CPT/HCPCS: 96127; 99202 ==